=== PATIENT | female | born 1940 | race Caucasian/White ===

== ENCOUNTER → 2017-09-18 | Outpatient (CLI) | payer MEDICARE, BC ==
--- NOTE | 2017-09-18 15:18 | NM ---
EXAMINATION TYPE: NM bone scan whole body DATE OF EXAM: 09/18/2017 COMPARISON: Recent outside radiographs of the lumbar spine. HISTORY: Back pain Delayed whole-body scanning was performed following the injection of 26 mCi Tc 99m MDP. Images acqui red 3 hours post injection. FINDINGS: There are linear areas of increased radiotracer accumulation compatible with compression fractures of T10, T11 and T12. No additional areas of intense radiotracer accumulation are seen. There is mild up take seen about the shoulders, sternoclavicular joints, L5-S1 compatible with mild degenerative cullen e. IMPRESSION: 1. Intense linear uptake involving T10, T11 and T12 compatible with acute compression fractures.
== END | disposition home or self-care (01) ==
LOC: RADNMMAIN 11:03
PROVIDERS: ATTEND Physical Medicine & Rehabilitation
DX: S22.088A Other fracture of T11-T12 vertebra, initial encounter for closed fracture (principal); M54.6 Pain in thoracic spine; M47.814 Spondylosis without myelopathy or radiculopathy, thoracic region
CPT/HCPCS: 78306; A9503

== ENCOUNTER → 2017-11-29 | Outpatient (CLI) | payer MEDICARE, BC ==
--- NOTE | 2017-11-29 10:29 | CT ---
EXAMINATION TYPE: CT brain w con DATE OF EXAM: 11/29/2017 COMPARISON: NONE INDICATION: Lt sided hyperreflexia, left leg weakness. DLP: 1078.64 mGycm, Automated exposure control for dose reduction was used. CONTRAST: [address] of the brain is performed utilizing 3 mm thick sections through the posterior fossa and 3 mm thick sections through the remaining calvarium. Study is performed within 24 hours of arrival to the hosp [facility]. No abnormal hyperdensity is present to suggest an acute intracranial hemorrhage. No mass lesion is evident. No acute infarcts are evident. Ventricles and sulci are appropriate for the patient age. Tiny retention cyst at the edge of the [id number] within the inferior right maxillary sinus. Remai rodrigo paranasal sinuses and mastoid air cells are clear. No abnormal enhancement is evident. IMPRESSIONS: 1. Normal postcontrast CT brain.
--- NOTE | 2017-11-29 11:02 | CT ---
EXAMINATION TYPE: CT cervical spine w con DATE OF EXAM: 11/29/2017 COMPARISON: NONE HISTORY: Lt sided hyperreflexia CT DLP: 772.73 mGycm CONTRAST: Performed with IV Contrast, patient injected with 100 mL of Isovue 300. CT of the cervical spine is performed in the axial plane at 2 mm thick sections. Reconstructed image s in the coronal, and sagittal plane are reviewed on the computer. No acute fractures are evident. Vertebral body alignment is normal. Disc heights are preserved. Central disc protrusion may be present C3-4 with moderate anterior thecal sac compression. No cord co ntact is evident. No spinal canal stenosis is present. There is a small central protrusion C4-5 with mild anterior thecal sac compression. No cord contact o r spinal canal stenosis is present. Vertebral body heights are preserved. No spinal canal stenosis is evident No neural foraminal stenosis is evident. No suspicious enhancement is evident. No lytic or sclerotic osseous lesions are evident IMPRESSIONS: 1. Small central disc protrusion C3-4 C4-5 without obvious CORD contact or spinal canal stenosis.
== END | disposition home or self-care (01) ==
LOC: RADCTMAIN 09:03
PROVIDERS: ATTEND Psychiatry & Neurology Neurology
DX: G20 Parkinson's disease (principal); M50.221 Other cervical disc displacement at C4-C5 level; R29.2 Abnormal reflex
CPT/HCPCS: 72126; 70460; Q9967

== ENCOUNTER 2019-05-11 18:02 | Observation (INO) | payer MEDICARE, BC ==
[2019-05-11] MEDS ORDERED: IPRATROPIUM-ALBUTEROL 3 ML NEB INHALATION STA ×2 (18:12→19:49)
[2019-05-11 18:48] LABS: Basophils # (A) 0.1 k/uL (0-0.2); Basophils % (A) 1 %; Eosinophils # (A) 0.1 k/uL (0-0.7); Eosinophils % (A) 2 %; HGB 13.1 gm/dL (11.4-16.0); Lymphocytes # (A) 0.7 k/uL (1.0-4.8); Lymphocytes % (A) 8 %; MCH 29.8 pg (25.0-35.0); MCHC 31.3 g/dL (31.0-37.0); MCV 95.4 fL (80.0-100.0); Mean Platelet Volume 8.5; Monocytes # (A) 0.1 k/uL (0-1.0); Monocytes % (A) 2 %; Neutrophils # (A) 7.6 k/uL (1.3-7.7); Neutrophils % (A) 87 %; Platelet Count 272 k/uL (150-450); RBC 4.41 m/uL (3.80-5.40); RDW 14.8 % (11.5-15.5); WBC 8.7 k/uL (3.8-10.6)
[2019-05-11 18:57] LABS: Partial Thromboplastin Time 27.5 sec (22.0-30.0); Prothrombin Time 10.6 sec (9.0-12.0)
[2019-05-11 18:58] LABS: Albumin 4.1 g/dL (3.5-5.0); Calcium 9.6 mg/dL (8.4-10.2); Total Bilirubin 0.5 mg/dL (0.2-1.3)
[2019-05-11 19:19] LABS: Potassium 4.1 mmol/L (3.5-5.1)
[2019-05-11] MEDS ORDERED: MAGNESIUM SULFATE-D5W PMX 1 GM in DEXTROSE/WATER 1 100ML.BAG IVPB ONE (19:41)
[2019-05-11] MEDS ORDERED: SODIUM CHLORIDE 0.9% 500 ML 500 ML IV ONE (19:41)
[2019-05-11] MEDS ORDERED: NALOXONE 0.4 MG/ML 1 ML VIAL IV PRN (20:18)
--- NOTE | 2019-05-11 20:18 | ED ---
SOB HPI - General Chief Complaint: Shortness of Breath Stated Complaint: low O2 and blood pressure Time Seen by Provider: 05/11/19 18:05 Source: patient Mode of arrival: wheelchair Limitations: no limitations - History of Present Illness Initial Comments: The patient is an 79-year-old female with past medical history of COPD who presents to the emergency Department as a transfer from an urgent care. The patient reports that she has had increasing shortness of breath over the past week. She does normally not wear oxygen. States that she does have oxygen at home to use when needed. States that she has been wearing over the past week. She has been using her nebulizer and inhalers as directed however it hasn't been helping her symptoms. She continues to have exertional shortness of breath and extreme wheezing. Her daughter did take her into an urgent care today. They did provide the patient with a DuoNeb breathing treatment and steroids. They checked her for influenza and performed a chest x-ray which was negative for pneumonia. Influenza was negative. The patient continued to saturate 88% on room air and because of this he did recommend that she go to the hospital for evaluation. The patient denies any chest pain. No lower extremity swelling. Denies any unilateral calf pain or swelling. No history of DVTs or PEs. She admits to a productive cough with clear sputum. Denies any fevers or chills. No ripping or tearing sensation to her back. Denies any additional symptoms include headache, visual changes, back pain or flank pain. No pain into her lower extremity. There are no alleviating, precipitating or modifying factors - Related Data Home Medications Medication Instructions Recorded Confirmed ALPRAZolam [Xanax] 0.5 mg PO DAILY 07/11/16 05/11/19 Cholecalciferol [Vitamin D3 (25 5,000 unit PO DAILY 07/11/16 05/11/19 Mcg = 1000 Iu)] Furosemide [Lasix] 20 mg PO DAILY 07/11/16 05/11/19 Montelukast [Singulair] 10 mg PO DAILY 07/11/16 05/11/19 Apixaban [Eliquis] 2.5 mg PO BID 05/11/19 05/11/19 Carbidopa-Levodopa ER 50-200Mg 1 tab PO BID@0700,1200 05/11/19 05/11/19 [Sinemet CR 50-200 mg] Diltiazem HCl [Diltiazem 24Hr ER] 240 mg PO DAILY 05/11/19 05/11/19 Fluticasone/Salmeterol 1 puff INHALATION RT-BID 05/11/19 05/11/19 [Fluticasone-Salmeterol 232-14] Multivitamin [Multivitamins Adult 1 tab PO DAILY 05/11/19 05/11/19 Gummies] Sotalol [Betapace] 120 mg PO BID 05/11/19 05/11/19 Vit C/E/Zn/Coppr/Lutein/Zeaxan 1 cap PO BID 05/11/19 05/11/19 [Preservision Areds 2 Softgel] Vitamin C Time Release 500mg 500 mg PO DAILY 05/11/19 05/11/19 Previous Rx's Medication Instructions Recorded Albuterol Nebulized [Ventolin 2.5 mg INHALATION RT-QID PRN #30 05/13/19 Nebulized] nebu predniSONE 0 mg PO DIRECTED #30 tab 05/13/19 Allergies Allergy/AdvReac Type Severity Reaction Status Date / Time venom-honey bee Allergy Rash/Hives Verified 05/11/19 18:48 latex AdvReac Rash/Hives Verified 05/11/19 18:48 Review of Systems ROS Statement: Those systems with pertinent positive or pertinent negative responses have been documented in the HPI. ROS Other: All systems not noted in ROS Statement are negative. Past Medical History Past Medical History: Atrial Fibrillation, COPD History of Any Multi-Drug Resistant Organisms: None Reported Past Surgical History: Bladder Surgery, Bowel Resection, Hysterectomy, Pacemaker Additional Past Surgical History / Comment(s): spleenectomy Past Psychological History: Anxiety Smoking Status: Former smoker Past Alcohol Use History: None Reported Past Drug Use History: None Reported - Past Family History Daughter(s) Family Medical History: No Reported History Father History Unknown: Yes Family Medical History: Unable to Obtain Mother History Unknown: Yes Family Medical History: No Reported History General Exam Limitations: no limitations General appearance: alert, in no apparent distress Head exam: Present: atraumatic, normocephalic, normal inspection Eye exam: Present: normal appearance, PERRL, EOMI. Absent: scleral icterus, conjunctival injection, periorbital swelling ENT exam: Present: normal exam, mucous membranes moist Neck exam: Present: normal inspection. Absent: tenderness, meningismus, lymphadenopathy Respiratory exam: Present: wheezes, accessory muscle use (tachypnia). Absent: respiratory distress, rales, rhonchi, stridor Cardiovascular Exam: Present: regular rate, normal rhythm, normal heart sounds. Absent: systolic murmur, diastolic murmur, rubs, gallop, clicks GI/Abdominal exam: Present: soft, normal bowel sounds. Absent: distended, tenderness, guarding, rebound, rigid Extremities exam: Present: normal inspection, full ROM, normal capillary refill. Absent: tenderness, pedal edema, joint swelling, calf tenderness Back exam: Present: normal inspection Neurological exam: Present: alert, oriented X3, CN II-XII intact Psychiatric exam: Present: normal affect, normal mood Skin exam: Present: warm, dry, intact, normal color. Absent: rash Course Vital Signs 05/11/19 05/11/19 05/11/19 18:03 18:39 18:50 Temperature 97.9 F Pulse Rate 89 60 66 Pulse Rate [ Pulse Oximetery ] Respiratory 25 H Rate Blood Pressure 99/57 Blood Pressure [Right Arm] O2 Sat by Pulse 92 L Oximetry 05/11/19 05/11/19 05/11/19 20:00 20:03 20:12 Temperature Pulse Rate 60 72 74 Pulse Rate [ Pulse Oximetery ] Respiratory 20 Rate Blood Pressure 94/54 Blood Pressure [Right Arm] O2 Sat by Pulse 93 L Oximetry 05/11/19 21:00 Temperature 97.9 F Pulse Rate Pulse Rate [ 63 Pulse Oximetery ] Respiratory 16 Rate Blood Pressure Blood Pressure 114/56 [Right Arm] O2 Sat by Pulse 94 L Oximetry Medical Decision Making - Medical Decision Making Upon arrival the patient was placed into room 7. There are history of physical exam was performed. The patient did receive a DuoNeb breathing treatment at the urgent care. I did provide her with a second one. Her blood pressure is noted to be on the low end. Because of this we did obtain peripheral IV in the p atient was given a 500 bolus of normal saline. I also gave the patient gram of magnesium. She is given a DuoNeb breathing treatment upon arrival. I did recommend laboratory studies. CBC is unremarkable. Coags are unremarkable. CMP shows a sodium of 136. Glucose 128. I did review chest x-ray from the urgent care facility which demonstrates no infiltrate. I do reevaluate the patient she continues to be diffusely wheezy. I did remove her oxygen and she does desat to 88%. Because the patient continues to remain hypoxic did recommend hospital admission. I called discuss case with Dr. Posada who accepted admission for the patient. I did order DuoNeb breathing treatments and steroids for the patient. She did remain in stable condition was transported to floor - Lab Data Result diagrams: 05/11/19 18:24 05/11/19 18:24 Lab Results 05/11/19 05/11/19 05/11/19 Range/Units 18:24 18:24 18:24 WBC 8.7 (3.8-10.6) k/uL RBC 4.41 (3.80-5.40) m/uL Hgb 13.1 (11.4-16.0) gm/dL Hct 42.0 (34.0-46.0) % MCV 95.4 (80.0-100.0) fL MCH 29.8 (25.0-35.0) pg MCHC 31.3 (31.0-37.0) g/dL RDW 14.8 (11.5-15.5) % Plt Count 272 (150-450) k/uL Neutrophils % 87 % Lymphocytes % 8 % Monocytes % 2 % Eosinophils % 2 % Basophils % 1 % Neutrophils # 7.6 (1.3-7.7) k/uL Lymphocytes # 0.7 L (1.0-4.8) k/uL Monocytes # 0.1 (0-1.0) k/uL Eosinophils # 0.1 (0-0.7) k/uL Basophils # 0.1 (0-0.2) k/uL PT 10.6 (9.0-12.0) sec INR 1.0 (<1.2) APTT 27.5 (22.0-30.0) sec Sodium 136 L (137-145) mmol/L Potassium 4.1 (3.5-5.1) mmol/L Chloride 98 (98-107) mmol/L Carbon Dioxide 27 (22-30) mmol/L Anion Gap 11 mmol/L BUN 9 (7-17) mg/dL Creatinine 0.74 (0.52-1.04) mg/dL Est GFR (CKD-EPI)AfAm 89 (>60 ml/min/1.73 sqM) Est GFR (CKD-EPI)NonAf 77 (>60 ml/min/1.73 sqM) Glucose 128 H (74-99) mg/dL Calcium 9.6 (8.4-10.2) mg/dL Total Bilirubin 0.5 (0.2-1.3) mg/dL AST 23 (14-36) U/L ALT 10 (9-52) U/L Alkaline Phosphatase 87 (38-126) U/L NT-Pro-B Natriuret Pep pg/mL Total Protein 7.0 (6.3-8.2) g/dL Albumin 4.1 (3.5-5.0) g/dL 05/11/19 Range/Units 18:24 WBC (3.8-10.6) k/uL RBC (3.80-5.40) m/uL Hgb (11.4-16.0) gm/dL Hct (34.0-46.0) % MCV (80.0-100.0) fL MCH (25.0-35.0) pg MCHC (31.0-37.0) g/dL RDW (11.5-15.5) % Plt Count (150-450) k/uL Neutrophils % % Lymphocytes % % Monocytes % % Eosinophils % % Basophils % % Neutrophils # (1.3-7.7) k/uL Lymphocytes # (1.0-4.8) k/uL Monocytes # (0-1.0) k/uL Eosinophils # (0-0.7) k/uL Basophils # (0-0.2) k/uL PT (9.0-12.0) sec INR (<1.2) APTT (22.0-30.0) sec Sodium (137-145) mmol/L Potassium (3.5-5.1) mmol/L Chloride (98-107) mmol/L Carbon Dioxide (22-30) mmol/L Anion Gap mmol/L BUN (7-17) mg/dL Creatinine (0.52-1.04) mg/dL Est GFR (CKD-EPI)AfAm (>60 ml/min/1.73 sqM) Est GFR (CKD-EPI)NonAf (>60 ml/min/1.73 sqM) Glucose (74-99) mg/dL Calcium (8.4-10.2) mg/dL Total Bilirubin (0.2-1.3) mg/dL AST (14-36) U/L ALT (9-52) U/L Alkaline Phosphatase (38-126) U/L NT-Pro-B Natriuret Pep 784 pg/mL Total Protein (6.3-8.2) g/dL Albumin (3.5-5.0) g/dL - EKG Data EKG Comments: EKG demonstrates a sinus rhythm with a ventricular rate of 60. NM interval 214. QRS 76. QTC 466. No acute ST segment elevations or depressions concerning for ischemic changes. There is overall low voltage. This is compared to previous and appear similar. Disposition Clinical Impression: Acute exacerbation of chronic obstructive pulmonary disease Disposition: ADMITTED IP TO THIS HOSP Condition: Stable Is patient prescribed a controlled substance at d/c from ED?: No Decision to Admit Reason: Admit from EC Decision Date: 05/11/19 Decision Time: 20:18
--- NOTE | 2019-05-11 22:23 | P.HPIM ---
History of Present Illness H&P Date: 05/11/19 Chief Complaint: Wheezing and coughing The patient is a 79-year-old female with a past medical history of COPD, atrial fibrillation status post pacemaker/defibrillator currently on anticoagulation with DOAC Eliquis, Parkinson's disease that was referred to the ER after being transferred from urgent care. Apparently the patient resides in [place] and earlier presented there with complaints of lightheadedness shortness of air and wheezing. The patient has a prescription for oxygen 2 L by nasal cannula which she wears when necessary but began wearing it for the last 24 hours The patient reports she began wheezing today but has had a productive cough with clear sputum for the last 7 days, she apparently thought she had the flu because she had episodes of nausea earlier in the week which are now resolved, she denies any subjective fevers chills or night sweats, she complains of muscle stiffness and aches. The patient reports that she ambulates unassisted and that she lives with her daughter Patricia who is not available via phone or in person at this time. Patient reports not having her seasonal flu shot as yet this year As there is no documentation available, the rest of the history is obtained by information relayed from the ED physician. Apparently the patient was noted to have a low blood pressure and low oxygen saturations with 88% on room air, she was placed on supplemental oxygen and started on IV IV steroids and breathing treatments to which she received here at 1 at the urgent care. Patient was still noted to be around 88% on room air after treatment and was recommended for admission for COPD exacerbation Review of Systems Pertinent positives per HPI all other review of system otherwise negative Past Medical History Past Medical History: Atrial Fibrillation, COPD History of Any Multi-Drug Resistant Organisms: None Reported Past Surgical History: Bladder Surgery, Bowel Resection, Hysterectomy, Pacemaker Additional Past Surgical History / Comment(s): spleenectomy Past Psychological History: Anxiety Smoking Status: Former smoker Past Alcohol Use History: None Reported Past Drug Use History: None Reported - Past Family History Daughter(s) Family Medical History: No Reported History Father History Unknown: Yes Family Medical History: Unable to Obtain Mother History Unknown: Yes Family Medical History: No Reported History Medications and Allergies Home Medications Medication Instructions Recorded Confirmed Type ALPRAZolam [Xanax] 0.5 mg PO DAILY 07/11/16 05/11/19 History Albuterol Nebulized [Ventolin 2.5 mg INHALATION RT-QID 07/11/16 05/11/19 History Nebulized] Cholecalciferol [Vitamin D3] 5,000 unit PO DAILY 07/11/16 05/11/19 History Furosemide [Lasix] 20 mg PO DAILY 07/11/16 05/11/19 History Montelukast [Singulair] 10 mg PO DAILY 07/11/16 05/11/19 History Apixaban [Eliquis] 2.5 mg PO BID 05/11/19 05/11/19 History Carbidopa-Levodopa ER 50-200Mg 1 tab PO BID@0700,1200 05/11/19 05/11/19 History [Sinemet ER 50-200] Diltiazem HCl [Diltiazem ER] 240 mg PO DAILY 05/11/19 05/11/19 History Fluticasone/Salmeterol 1 puff INHALATION RT-BID 05/11/19 05/11/19 History [Fluticasone-Salmeterol 232-14] Multivitamin [Multivitamins Adult 1 tab PO DAILY 05/11/19 05/11/19 History Gummies] Sotalol [Betapace] 120 mg PO BID 05/11/19 05/11/19 History Vit C/E/Zn/Coppr/Lutein/Zeaxan 1 cap PO BID 05/11/19 05/11/19 History [Preservision Areds 2 Softgel] Vitamin C Time Release 500mg 500 mg PO DAILY 05/11/19 05/11/19 History predniSONE 10 mg PO DAILY 05/11/19 05/11/19 History Allergies Allergy/AdvReac Type Severity Reaction Status Date / Time venom-honey bee Allergy Rash/Hives Verified 05/11/19 18:48 latex AdvReac Rash/Hives Verified 05/11/19 18:48 Physical Exam Vitals: Vital Signs Temp Pulse Resp BP Pulse Ox 05/11/19 20:12 74 05/11/19 20:03 72 05/11/19 20:00 60 20 94/54 93 L 05/11/19 18:50 66 05/11/19 18:39 60 05/11/19 18:03 97.9 F 89 25 H 99/57 92 L Intake and Output 05/11/19 05/11/19 05/11/19 06:59 14:59 22:59 Intake Total 400 Balance 400 Intake: Amount of Fluid Infused ( 400 ml) Other: Weight 77.564 kg Constitutional: No acute distress, conversant, pleasant Eyes: Anicteric sclerae, moist conjunctiva, no lid-lag, PERRLA ENMT: NC/AT,Oropharynx clear, no erythema, exudates Neck:Supple, FROM, no masses, or JVD, No carotid bruits; No thyromegaly Lungs: Diminished in the bases with right sided expiratory wheezes Cardiovascular: Heart regular in rate and rhythm, No murmurs, gallops, or rubs no peripheral edema Abdominal: Soft Nontender, nom distended, no guarding, no rebound or rigidity, Normoactive bowel sounds No hepatomegaly, No splenomegaly, No palpable mass No abdominal wall hernia noted Skin: Normal temperature, tone, texture, turgor, No induration No subcutaneous nodules, No rash, lesions, No ulcers Extremities:No digital cyanosis No clubbing, Pedal pulses intact and symmetrical Radial pulses intact and symmetrical Normal gait and station, No calf tenderness Psychiatric: Alert and oriented to person, place and time, Appropriate affect Intact judgement Neuro: Muscles Strength 5/5 in all 4 extremities, Sensation to light touch grossly present throughout, Cranial nerves II-XII grossly intact. No focal sensory deficits Results CBC & Chem 7: 05/11/19 18:24 05/11/19 18:24 Labs: Abnormal Lab Results - Last 24 Hours (Table) 05/11/19 05/11/19 Range/Units 18:24 18:24 Lymphocytes # 0.7 L (1.0-4.8) k/uL Sodium 136 L (137-145) mmol/L Glucose 128 H (74-99) mg/dL Assessment and Plan Assessment: Acute respiratory failure with hypoxia Acute COPD exacerbation Tracheobronchitis Atrial fibrillation on DOAC with Eliquis Parkinson's disease Essential hypertension Mild hyponatremia Atelectasis Plan: The patient observation anticipate a less than 2 midnight stay with acute respiratory failure with hypoxia secondary to acute COPD exacerbation triggered by acute tracheobronchitis. Checks x-ray done at urgent care facility apparently was negative for any infectious etiology, but showed left basilar atelectasis and cardiomegaly. The patient's blood pressure was borderline and she was given a liter of IV fluids in the ER. Admission labs have very few abnormalities serum sodium was mildly low at 136. Influenza was also apparently negative, the patient is continued on systemic steroids with IV Solu-Medrol, albuterol Atrovent Duo breathing treatments scheduled and PRN, with Perforomist and Mucinex added. Patient is continued on her home medications CODE STATUS: DO NOT RESUSCITATE Discussed plan of care with: Patient Anticipated discharge; 1-[address]: Home Prophylaxis: Currently on DOAC/ PPI
[2019-05-11] MEDS: APIXABAN 2.5 MG TABLET PO SCH (23:10)
[2019-05-11] MEDS: SOTALOL 120 MG TAB PO SCH (23:10)
[2019-05-11] MEDS: VIT A,C & E-LUTEIN-MINERALS 1 EACH TAB PO SCH (23:10)
[2019-05-11] MEDS: methylPREDNISolone SOD SUCCI 40 MG/ML 1 ML VIAL IV SCH (23:10)
[2019-05-11] MEDS ORDERED: POLYETHYLENE GLYCOL 3350 17 GM POWD.PACK PO STA (23:44)
[2019-05-11] MEDS: IPRATROPIUM-ALBUTEROL 3 ML NEB INHALATION SCH (23:51)
[2019-05-12] MEDS: IPRATROPIUM-ALBUTEROL 3 ML NEB INHALATION SCH ×6 (03:56→23:26)
[2019-05-12 07:08] LABS: Glucose,Whole Blood 131 mg/dL (75-99)
[2019-05-12] MEDS: FORMOTEROL FUMARATE 20 MCG/2 ML NEBU INHALATION SCH ×3 (08:13→19:46)
[2019-05-12] MEDS: SYMBICORT 160-4.5 MCG INHALER INHALATION SCH ×4 (08:13→20:02)
[2019-05-12] MEDS: ASCORBIC ACID 500 MG TAB PO SCH (08:24)
[2019-05-12] MEDS: methylPREDNISolone SOD SUCCI 40 MG/ML 1 ML VIAL IV SCH ×2 (08:24→16:15)
[2019-05-12] MEDS: CHOLECALCIFEROL 1,000 UNIT TAB PO SCH (08:24)
[2019-05-12] MEDS: DILTIAZEM CD 240 MG CAP.ER.24H PO SCH (08:24)
[2019-05-12] MEDS: FUROSEMIDE 20 MG TAB PO SCH (08:24)
[2019-05-12] MEDS: PANTOPRAZOLE 40 MG TABLET PO SCH (08:25)
[2019-05-12] MEDS: CARBIDOPA-LEVODOPA ER 50-200MG 1 EACH TABLET.ER PO SCH ×2 (08:25→11:45)
[2019-05-12] MEDS: guaiFENesin 600 MG TABLET.ER PO SCH ×2 (08:25→20:39)
[2019-05-12] MEDS: ALPRAZolam 0.5 MG TAB PO SCH (08:25)
[2019-05-12] MEDS: MONTELUKAST 10 MG TAB PO SCH (08:25)
[2019-05-12] MEDS: APIXABAN 2.5 MG TABLET PO SCH ×2 (08:25→20:40)
[2019-05-12] MEDS: SOTALOL 120 MG TAB PO SCH ×2 (08:26→20:39)
[2019-05-12] MEDS: INSULIN ASPART (NovoLOG) 100 UNIT/ML VIAL SQ SCH ×4 (08:26→20:56)
[2019-05-12] MEDS: POLYETHYLENE GLYCOL 3350 17 GM POWD.PACK PO SCH (08:26)
[2019-05-12] MEDS: VIT A,C & E-LUTEIN-MINERALS 1 EACH TAB PO SCH ×2 (08:26→20:39)
[2019-05-12] MEDS: MULTIVITAMINS, THERA 1 EACH TAB PO SCH (08:26)
[2019-05-12 11:26] LABS: Glucose,Whole Blood 156 mg/dL (75-99)
[2019-05-12 13:42] VITALS: BMI 26.6
--- NOTE | 2019-05-12 17:01 | P.PN ---
Subjective Progress Note Date: 05/12/19 The patient was seen and examined at the bedside on 05/12. She was in good spirits and noted that her breathing has improved. She denied chest pain, nausea, vomiting, fever, or chills. Objective - Vital Signs Vital signs: Vital Signs Temp 97.5 F L 05/12/19 11:53 Pulse 72 05/12/19 15:55 Resp 17 05/12/19 11:53 BP 109/66 05/12/19 11:53 Pulse Ox 92 L 05/12/19 11:53 Intake & Output 05/11/19 05/12/19 05/12/19 18:59 06:59 18:59 Intake Total 1880 590 Balance 1880 590 Weight 77.564 kg 75 kg 75 kg Intake: Amount of Fluid Infused ( 400 ml) Oral 1480 590 Other: Voiding Method Toilet # Voids 2 3 - Exam General: Non-toxic, in no acute distress, appears stated age, normal weight HEENT: NC/AT, anicteric sclerae, moist conjunctiva, no lid-lag, PERRLA Cardiovascular: S1/S2 wnl, no murmurs, rubs, or gallops Lungs: Mildly decreased air entry violette w/ some wheezing, normal respiratory effort, no accessory muscle use Abdominal: Soft, non-tender, non-distended, no guarding, rebound, or rigidity Skin: Warm, dry Extremities: No edema or contractures Psychiatric: Alert and oriented to person, place and time, appropriate affect Neuro: CN II-XII grossly intact, no focal deficits - Labs CBC & Chem 7: 05/11/19 18:24 05/11/19 18:24 Labs: Abnormal Lab Results - Last 24 Hours (Table) 05/11/19 05/11/19 05/12/19 Range/Units 18:24 18:24 07:07 Lymphocytes # 0.7 L (1.0-4.8) k/uL Sodium 136 L (137-145) mmol/L Glucose 128 H (74-99) mg/dL POC Glucose (mg/dL) 131 H (75-99) mg/dL 05/12/19 Range/Units 11:25 Lymphocytes # (1.0-4.8) k/uL Sodium (137-145) mmol/L Glucose (74-99) mg/dL POC Glucose (mg/dL) 156 H (75-99) mg/dL Assessment and Plan Plan: Acute hypoxic respiratory failure in the setting of acute COPD exacerbation -Continue with Solu-Medrol -Continue with DuoNeb's and Symbicort -Supplemental oxygen Atrial fibrillation -Continue with Eliquis DM -RISSA with FS Hypertension, Parkinson's -Continue with home meds DVT prophylaxis -Giovanaquis Discussed with: Patient Anticipated discharge date: 05/[address]: Home A total of 35 minutes was spent on the care of this complex patient more than 50% of the time was spent in counseling and care coordination.
[2019-05-12 17:33] LABS: Glucose,Whole Blood 187 mg/dL (75-99)
[2019-05-12 20:52] LABS: Glucose,Whole Blood 148 mg/dL (75-99)
[2019-05-13] MEDS: methylPREDNISolone SOD SUCCI 40 MG/ML 1 ML VIAL IV SCH ×2 (00:42→07:57)
[2019-05-13] MEDS: IPRATROPIUM-ALBUTEROL 3 ML NEB INHALATION SCH ×4 (03:21→15:43)
[2019-05-13 07:22] LABS: Glucose,Whole Blood 132 mg/dL (75-99)
[2019-05-13] MEDS: INSULIN ASPART (NovoLOG) 100 UNIT/ML VIAL SQ SCH ×2 (07:52→12:00)
[2019-05-13] MEDS: ASCORBIC ACID 500 MG TAB PO SCH (07:53)
[2019-05-13] MEDS: MULTIVITAMINS, THERA 1 EACH TAB PO SCH (07:53)
[2019-05-13] MEDS: ALPRAZolam 0.5 MG TAB PO SCH (07:53)
[2019-05-13] MEDS: CHOLECALCIFEROL 1,000 UNIT TAB PO SCH (07:54)
[2019-05-13] MEDS: MONTELUKAST 10 MG TAB PO SCH (07:56)
[2019-05-13] MEDS: PANTOPRAZOLE 40 MG TABLET PO SCH (07:56)
[2019-05-13] MEDS: APIXABAN 2.5 MG TABLET PO SCH (07:56)
[2019-05-13] MEDS: FUROSEMIDE 20 MG TAB PO SCH (07:56)
[2019-05-13] MEDS: guaiFENesin 600 MG TABLET.ER PO SCH (07:57)
[2019-05-13] MEDS ORDERED: BISACODYL 5 MG TABLET.DR PO STA (07:58)
[2019-05-13] MEDS: POLYETHYLENE GLYCOL 3350 17 GM POWD.PACK PO SCH (08:00)
[2019-05-13] MEDS: CARBIDOPA-LEVODOPA ER 50-200MG 1 EACH TABLET.ER PO SCH ×2 (08:07→12:03)
[2019-05-13] MEDS: VIT A,C & E-LUTEIN-MINERALS 1 EACH TAB PO SCH (08:08)
[2019-05-13] MEDS: DILTIAZEM CD 240 MG CAP.ER.24H PO SCH (08:08)
[2019-05-13] MEDS: SOTALOL 120 MG TAB PO SCH (08:08)
[2019-05-13] MEDS: FORMOTEROL FUMARATE 20 MCG/2 ML NEBU INHALATION SCH (08:23)
[2019-05-13] MEDS: SYMBICORT 160-4.5 MCG INHALER INHALATION SCH (08:24)
--- NOTE | 2019-05-13 09:40 | P.DS ---
Providers Date of admission: 05/11/19 20:23 Expected date of discharge: 05/13/19 Attending physician: Travon Posada MD Primary care physician: Tammy Lockwood [facility] Course: Vision is an 79-year-old female with a PMH of COPD, A. fib, and Parkinson's disease who had presented to the ED with complaints of shortness of breath with wheezing. The patient was transferred from an urgent care center where she had presented for similar symptoms. The patient was noted to be hypoxic in the emergency room. Laboratory evaluation had revealed a sodium 136, BNP 74, hemoglobin 10.1, WBC count 8.7. She was started on supplemental oxygen along with IV steroids and breathing treatments and was admitted under observation. The patient's breathing gradually improved. She was seen and evaluated at the bedside on the day of discharge. She reported that she feels as though she is almost back to her baseline. She noted no further episodes of shortness of breath or wheezing. She denied chest pain, itchiness, nausea, vomiting, fever, or chills. Physical Examination General: Non-toxic, in no acute distress, appears stated age, normal weight HEENT: NC/AT, anicteric sclerae, moist conjunctiva, no lid-lag, PERRLA Cardiovascular: S1/S2 wnl, no murmurs, rubs, or gallops Lungs: Clear to auscultation, normal respiratory effort, no accessory muscle use Abdominal: Soft, non-tender, non-distended, no guarding, rebound, or rigidity Skin: Warm, dry Extremities: No edema or contractures Psychiatric: Alert and oriented to person, place and time, appropriate affect Neuro: CN II-XII grossly intact, Strength 5/5 in all 4 extremities, Speech intact, Sensation to light touch grossly intact throughout Discharge diagnosis: Acute hypoxic respiratory failure secondary to an acute COPD exacerbation in setting of tracheobronchitis; atrial fibrillation; Parkinson's disease; hypertension; atelectasis A total of 35 minutes of time were spent preparing this complex discharge summary. Patient Condition at Discharge: Stable Plan - Discharge Summary Discharge Rx Participant: No New Discharge Prescriptions: New predniSONE 0 mg PO DIRECTED #30 tab Continue Cholecalciferol [Vitamin D3 (25 Mcg = 1000 Iu)] 5,000 unit PO DAILY ALPRAZolam [Xanax] 0.5 mg PO DAILY Montelukast [Singulair] 10 mg PO DAILY Furosemide [Lasix] 20 mg PO DAILY Vitamin C Time Release 500mg 500 mg PO DAILY Vit C/E/Zn/Coppr/Lutein/Zeaxan [Preservision Areds 2 Softgel] 1 cap PO BID Carbidopa-Levodopa ER 50-200Mg [Sinemet CR 50-200 mg] 1 tab PO BID@0700,1200 Fluticasone/Salmeterol [Fluticasone-Salmeterol 232-14] 1 puff INHALATION RT- BID Diltiazem HCl [Diltiazem 24Hr ER] 240 mg PO DAILY Apixaban [Eliquis] 2.5 mg PO BID Sotalol [Betapace] 120 mg PO BID Multivitamin [Multivitamins Adult Gummies] 1 tab PO DAILY Albuterol Nebulized [Ventolin Nebulized] 2.5 mg INHALATION RT-QID #30 neb Discontinued predniSONE 10 mg PO DAILY Discharge Medication List ALPRAZolam [Xanax] 0.5 mg PO DAILY 07/11/16 [History] Cholecalciferol [Vitamin D3 (25 Mcg = 1000 Iu)] 5,000 unit PO DAILY 07/11/16 [History] Furosemide [Lasix] 20 mg PO DAILY 07/11/16 [History] Montelukast [Singulair] 10 mg PO DAILY 07/11/16 [History] Apixaban [Eliquis] 2.5 mg PO BID 05/11/19 [History] Carbidopa-Levodopa ER 50-200Mg [Sinemet CR 50-200 mg] 1 tab PO BID@0700,1200 05/11/19 [History] Diltiazem HCl [Diltiazem 24Hr ER] 240 mg PO DAILY 05/11/19 [History] Fluticasone/Salmeterol [Fluticasone-Salmeterol 232-14] 1 puff INHALATION RT-BID 05/11/19 [History] Multivitamin [Multivitamins Adult Gummies] 1 tab PO DAILY 05/11/19 [History] Sotalol [Betapace] 120 mg PO BID 05/11/19 [History] Vit C/E/Zn/Coppr/Lutein/Zeaxan [Preservision Areds 2 Softgel] 1 cap PO BID 05/11/19 [History] Vitamin C Time Release 500mg 500 mg PO DAILY 05/11/19 [History] Albuterol Nebulized [Ventolin Nebulized] 2.5 mg INHALATION RT-QID #30 neb 05/13/19 [Rx] predniSONE 0 mg PO DIRECTED #30 tab 05/13/19 [Rx] Follow up Appointment(s)/Referral(s): Tammy Banks MD [Primary Care Provider] - 1-2 days Discharge Disposition: HOME SELF-CARE
[2019-05-13 11:32] LABS: Glucose,Whole Blood 120 mg/dL (75-99)
[2019-05-13] MEDS ORDERED: BISACODYL 10 MG SUPP RECTAL STA (13:44)
[2019-05-13 15:34] VITALS: BP 121/70; RESP 18; TEMP 98
[2019-05-13 15:59] VITALS: PULSE 76
== END 2019-05-13 16:05 | disposition home or self-care (01) ==
LOC: EC 18:02 → 3NMEDONC 20:23
PROVIDERS: ADMIT Family Medicine; ATTEND Family Medicine
DX: J44.0 Chronic obstructive pulmonary disease with (acute) lower respiratory infection (principal); J44.1 Chronic obstructive pulmonary disease with (acute) exacerbation; E87.1 Hypo-osmolality and hyponatremia; F41.9 Anxiety disorder, unspecified; G20 Parkinson's disease; I11.9 Hypertensive heart disease without heart failure; I48.91 Unspecified atrial fibrillation; J20.9 Acute bronchitis, unspecified; J96.01 Acute respiratory failure with hypoxia; J98.11 Atelectasis; Z66 Do not resuscitate; Z79.01 Long term (current) use of anticoagulants; Z79.899 Other long term (current) drug therapy; Z87.891 Personal history of nicotine dependence; Z90.710 Acquired absence of both cervix and uterus; Z90.81 Acquired absence of spleen; Z95.0 Presence of cardiac pacemaker; Z99.81 Dependence on supplemental oxygen; Z91.030 Bee allergy status; Z91.040 Latex allergy status
CPT/HCPCS: 96376 ×2; 96361 ×3; 96375; 96365; 99285; 36415; 94640 ×6; 94760 ×2; 93005; 83880; 80053; 85025; 85610; 85730; G0378 ×3; J2920 ×3; J3475; 96366

== ENCOUNTER → 2019-05-16 | Outpatient (CLI) | payer MEDICARE, BC ==
--- NOTE | 2019-05-16 11:18 | CT ---
EXAMINATION TYPE: CT abdomen pelvis w con DATE OF EXAM: 05/16/2019 HISTORY: Abdominal hernia CT DLP: 1596mGycm Automated Exposure Control for Dose Reduction was Utilized. CONTRAST: CT scan of the abdomen and pelvis is performed with oral and with IV Contrast, patient injected with 100 mL of Isovue 300. COMPARISON: MRI liver August 15, 2011. FINDINGS: LUNG BASES: Elevated left hemidiaphragm. Partial visualization of right-sided pacemaker leads. LIVER/GB: Scattered subcentimeter low dense lesions throughout the liver too small to further charact erize. There is a larger 3.4 cm thin-walled cyst lateral segment left hepatic lobe axial image 32. Im mediately to the right of this there is heterogeneous hyperdense 5.8 x 5.1 cm lesion axial image 20 w ith some central hypodensity. This correlates with 2012 MRI and is stable in size felt to reflect a l arge atypical hemangioma on the MRI workup. Smaller roughly 1 cm lesion inferior right hepatic lobe a xial image is redemonstrated. PANCREAS: No significant abnormality is seen. SPLEEN: Spleen is surgically absent similar to MRI with tiny residual tissue or splenules posterior l eft upper quadrant redemonstrated. ADRENALS: No significant abnormality is seen. KIDNEYS: There are prominent central parapelvic cysts in the left kidney again seen. Asymmetric laryn geal uptake excretion bilaterally without hydronephrosis is noted. BOWEL: Oral contrast reaches the level of the hepatic flexure. There is no suspicious small or large bowel dilatation. There are surgical sutures at level of sigmoid colon on axial image 60. Few scatter ed colonic diverticula. No suspicious smaller large bowel dilatation. Terminal ileum appears within n ormal limits. UTERUS/ADNEXA: Uterus is surgically absent. LYMPH NODES: No greater than 1cm abdominal or pelvic lymph nodes are appreciated. OSSEOUS STRUCTURES: Moderate to severe narrowing of both hip joints. Moderate disc space narrowing an d vacuum disc phenomenon L3-L4 level. Mild height loss and anterior compression T12 level. Multilevel facet arthropathy lower lumbar spine. Disc herniation L3-L4 level effaces anterior thecal sac sagitt al image 37. OTHER: [id number] calcified plaque of the aorta extends into branch vessels. There is a wide neck ventral wall hernia measuring 3.2 cm\31 containing fat and tiny mesenteric vesse ls with some right lateral fluid coronal image 5. Just inferior to the left of this there is addition al ventral wall hernia containing fat there are surgical scar seen best coronal image 6, hernia best seen axial image 40. There is additional cortical scar over the lower abdomen axial image 59. There i s right pelvic hernia axial image 67 containing fat and tiny mesenteric vessels as well as contrast o pacified nondilated small bowel loop along the lateral aspect of the rectus sheath or Spigelian type hernia. IMPRESSION: Several bilateral wall hernias including a spigelian type hernia right pelvis containing nonobstructed ileal loop.
== END ==
LOC: RADCTMAIN 08:36
PROVIDERS: ATTEND Family Medicine
DX: K43.9 Ventral hernia without obstruction or gangrene (principal); K46.9 Unspecified abdominal hernia without obstruction or gangrene
CPT/HCPCS: 74177; Q9967

== ENCOUNTER 2019-06-05 12:23 | Inpatient (IN) | payer MEDICARE, BC ==
[2019-06-05] MEDS ORDERED: methylPREDNISolone SOD SUCCI 125 MG/2 ML VIAL IV STA (12:42)
[2019-06-05] MEDS ORDERED: IPRATROPIUM 0.5 MG/2.5 ML NEBU INHALATION STA (12:42)
[2019-06-05] MEDS ORDERED: ALBUTEROL NEBULIZED 2.5 MG/3 ML INHALATION STA (12:42)
--- NOTE | 2019-06-05 12:45 | ED ---
General Adult HPI - General Chief complaint: Shortness of Breath Stated complaint: SOB Time Seen by Provider: 06/05/19 12:25 Source: patient, RN notes reviewed Mode of arrival: wheelchair Limitations: no limitations - History of Present Illness Initial comments: This is an 79-year-old female who presents emergency department with past medical history significant for COPD. Patient states starting yesterday she started having more shortness of breath and she continued giving her albuterol more more often to the point where she is doing it every 2 hours and not getting much relief. Patient denies any fever or cough. Patient denies any chills per patient denies any chest pain or palpitations. Patient denies any swelling to the legs or calf tenderness. Patient states exertion definitely makes it worse. Patient states albuterol only helps for short period time. Patient denies any lightheadedness or dizziness. Patient denies any numbness or weakness. Patient denies any abdominal pain patient with any recent nausea vomiting diarrhea. - Related Data Home Medications Medication Instructions Recorded Confirmed ALPRAZolam [Xanax] 0.5 mg PO DAILY 07/11/16 06/05/19 Cholecalciferol [Vitamin D3 (25 5,000 unit PO DAILY 07/11/16 06/05/19 Mcg = 1000 Iu)] Furosemide [Lasix] 20 mg PO DAILY 07/11/16 06/05/19 Montelukast [Singulair] 10 mg PO DAILY 07/11/16 06/05/19 Apixaban [Eliquis] 2.5 mg PO BID 05/11/19 06/05/19 Carbidopa-Levodopa ER 50-200Mg 1 tab PO BID@0700,1200 05/11/19 06/05/19 [Sinemet CR 50-200 mg] Fluticasone/Salmeterol 1 puff INHALATION RT-BID 05/11/19 06/05/19 [Fluticasone-Salmeterol 232-14] Multivitamin [Multivitamins Adult 1 tab PO DAILY 05/11/19 06/05/19 Gummies] Sotalol [Betapace] 120 mg PO BID 05/11/19 06/05/19 Vit C/E/Zn/Coppr/Lutein/Zeaxan 1 cap PO BID 05/11/19 06/05/19 [Preservision Areds 2 Softgel] Vitamin C Time Release 500mg 500 mg PO DAILY 05/11/19 06/05/19 Diltiazem HCl [Diltiazem ER] 180 mg PO DAILY 06/05/19 06/05/19 Previous Rx's Medication Instructions Recorded Albuterol Nebulized [Ventolin 2.5 mg INHALATION RT-QID PRN #30 05/13/19 Nebulized] nebu Allergies Allergy/AdvReac Type Severity Reaction Status Date / Time latex Allergy Rash/Hives Verified 06/05/19 12:39 venom-honey bee Allergy Rash/Hives Verified 06/05/19 12:39 Review of Systems ROS Statement: Those systems with pertinent positive or pertinent negative responses have been documented in the HPI. ROS Other: All systems not noted in ROS Statement are negative. Past Medical History Past Medical History: Atrial Fibrillation, COPD Additional Past Medical History / Comment(s): Allergies. bladder and colon cancer no treatment with chemo or radiation, TIA in 2010,Parkinsons, patient pupils are unequal (left bigger than right, and per patient has always been like this), chronic back pain, macular degeneration, ex-smoker 10 years ago History of Any Multi-Drug Resistant Organisms: None Reported Past Surgical History: Bladder Surgery, Bowel Resection, Hysterectomy, Pacemaker Additional Past Surgical History / Comment(s): spleenectomy Past Anesthesia/Blood Transfusion Reactions: No Reported Reaction Type of Cardiac Device: Permanent Pacemaker Device Placement Date:: Unknown Past Psychological History: Anxiety Smoking Status: Former smoker Past Alcohol Use History: None Reported Past Drug Use History: None Reported - Past Family History Daughter(s) Family Medical History: No Reported History Father History Unknown: Yes Family Medical History: Unable to Obtain Mother History Unknown: Yes Family Medical History: No Reported History General Exam - General Exam Comments Initial Comments: GENERAL: Patient is well-developed and well-nourished. Patient is nontoxic and well- hydrated and is in mild distress. ENT: Neck is soft and supple. No significant lymphadenopathy is noted. Oropharynx is clear. Moist mucous membranes. Neck has full range of motion without eliciting any pain. EYES: The sclera were anicteric and conjunctiva were pink and moist. Extraocular movements were intact and pupils were equal round and reactive to light. Eyelids were unremarkable. PULMONARY: Patient has diminished breath sounds throughout and expiratory wheezing. CARDIOVASCULAR: There is a regular rate and rhythm without any murmurs gallops or rubs. ABDOMEN: Soft and nontender with normal bowel sounds. SKIN: Skin is clear with no lesions or rashes and otherwise unremarkable. NEUROLOGIC: Patient is alert and oriented x3. Cranial nerves II through XII are grossly intact. Motor and sensory are also intact. Normal speech, volume and content. Symmetrical smile. MUSCULOSKELETAL: Normal extremities with adequate strength and full range of motion. Left leg is slightly bigger than the right patient states this is been chronic and she has been checked before for DVTs and according to her this leg size is baseline LYMPHATICS: No significant lymphadenopathy is noted PSYCHIATRIC: Normal psychiatric evaluation. Limitations: no limitations Course Vital Signs 06/05/19 06/05/19 06/05/19 12:24 12:48 13:15 Temperature 98.5 F Pulse Rate 73 70 68 Respiratory 20 Rate Blood Pressure 128/73 O2 Sat by Pulse 94 L Oximetry 06/05/19 06/05/19 13:30 14:04 Temperature Pulse Rate 68 73 Respiratory 18 18 Rate Blood Pressure 107/71 137/71 O2 Sat by Pulse 97 96 Oximetry Medical Decision Making - Medical Decision Making EKG shows normal sinus rhythm at 69 bpm W[place] interval 182 QRS is 70 QT interval is 414 QTC is 443. Patient's EKG shows no ST segment elevation or depression or T wave abnormalities are noted. Chest x-ray shows no acute abnormalities. I will begin the room to reevaluate the patient she still is wheezing diffusely and stated she didn't feel much better after a couple trips. I spoke with Dr. Antonio for [facility] and he agreed to admit the patient admit malathi the patient continued reading treatments and steroids on the floor. - Lab Data Result diagrams: 06/05/19 12:48 06/05/19 12:48 Lab Results 06/05/19 06/05/19 06/05/19 Range/Units 12:48 12:48 12:48 WBC 8.4 (3.8-10.6) k/uL RBC 3.91 (3.80-5.40) m/uL Hgb 11.9 (11.4-16.0) gm/dL Hct 36.2 (34.0-46.0) % MCV 92.4 (80.0-100.0) fL MCH 30.3 (25.0-35.0) pg MCHC 32.8 (31.0-37.0) g/dL RDW 14.8 (11.5-15.5) % Plt Count 284 (150-450) k/uL Neutrophils % 69 % Lymphocytes % 15 % Monocytes % 5 % Eosinophils % 7 % Basophils % 1 % Neutrophils # 5.8 (1.3-7.7) k/uL Lymphocytes # 1.3 (1.0-4.8) k/uL Monocytes # 0.4 (0-1.0) k/uL Eosinophils # 0.6 (0-0.7) k/uL Basophils # 0.1 (0-0.2) k/uL PT (9.0-12.0) sec INR (<1.2) APTT (22.0-30.0) sec Sodium 141 (137-145) mmol/L Potassium 4.0 (3.5-5.1) mmol/L Chloride 105 (98-107) mmol/L Carbon Dioxide 26 (22-30) mmol/L Anion Gap 10 mmol/L BUN 8 (7-17) mg/dL Creatinine 0.58 (0.52-1.04) mg/dL Est GFR (CKD-EPI)AfAm >90 (>60 ml/min/1.73 sqM) Est GFR (CKD-EPI)NonAf 87 (>60 ml/min/1.73 sqM) Glucose 89 (74-99) mg/dL Calcium 9.2 (8.4-10.2) mg/dL Magnesium 2.2 (1.6-2.3) mg/dL Total Bilirubin 0.3 (0.2-1.3) mg/dL AST 15 (14-36) U/L ALT 11 (9-52) U/L Alkaline Phosphatase 97 (38-126) U/L Troponin I (0.000-0.034) ng/mL NT-Pro-B Natriuret Pep 555 pg/mL Total Protein 6.7 (6.3-8.2) g/dL Albumin 3.6 (3.5-5.0) g/dL 06/05/19 06/05/19 Range/Units 12:48 12:48 WBC (3.8-10.6) k/uL RBC (3.80-5.40) m/uL Hgb (11.4-16.0) gm/dL Hct (34.0-46.0) % MCV (80.0-100.0) fL MCH (25.0-35.0) pg MCHC (31.0-37.0) g/dL RDW (11.5-15.5) % Plt Count (150-450) k/uL Neutrophils % % Lymphocytes % % Monocytes % % Eosinophils % % Basophils % % Neutrophils # (1.3-7.7) k/uL Lymphocytes # (1.0-4.8) k/uL Monocytes # (0-1.0) k/uL Eosinophils # (0-0.7) k/uL Basophils # (0-0.2) k/uL PT 10.5 (9.0-12.0) sec INR 1.0 (<1.2) APTT 29.9 (22.0-30.0) sec Sodium (137-145) mmol/L Potassium (3.5-5.1) mmol/L Chloride (98-107) mmol/L Carbon Dioxide (22-30) mmol/L Anion Gap mmol/L BUN (7-17) mg/dL Creatinine (0.52-1.04) mg/dL Est GFR (CKD-EPI)AfAm (>60 ml/min/1.73 sqM) Est GFR (CKD-EPI)NonAf (>60 ml/min/1.73 sqM) Glucose (74-99) mg/dL Calcium (8.4-10.2) mg/dL Magnesium (1.6-2.3) mg/dL Total Bilirubin (0.2-1.3) mg/dL AST (14-36) U/L ALT (9-52) U/L Alkaline Phosphatase (38-126) U/L Troponin I <0.012 (0.000-0.034) ng/mL NT-Pro-B Natriuret Pep pg/mL Total Protein (6.3-8.2) g/dL Albumin (3.5-5.0) g/dL Critical Care Time Critical Care Time: Yes Total Critical Care Time: 35 Disposition Clinical Impression: COPD with acute exacerbation Disposition: ADMITTED IP TO THIS [facility] Referrals: Nonstaff,Physician [REFERRING] - 1-2 days Time of Disposition: 14:29
[2019-06-05 13:04] LABS: Basophils # (A) 0.1 k/uL (0-0.2); Basophils % (A) 1 %; Eosinophils # (A) 0.6 k/uL (0-0.7); Eosinophils % (A) 7 %; HCT 36.2 % (34.0-46.0); HGB 11.9 gm/dL (11.4-16.0); Lymphocytes # (A) 1.3 k/uL (1.0-4.8); Lymphocytes % (A) 15 %; MCH 30.3 pg (25.0-35.0); MCHC 32.8 g/dL (31.0-37.0); MCV 92.4 fL (80.0-100.0); Mean Platelet Volume 6.8; Monocytes # (A) 0.4 k/uL (0-1.0); Monocytes % (A) 5 %; Neutrophils # (A) 5.8 k/uL (1.3-7.7); Neutrophils % (A) 69 %; Platelet Count 284 k/uL (150-450); RBC 3.91 m/uL (3.80-5.40); RDW 14.8 % (11.5-15.5); WBC 8.4 k/uL (3.8-10.6)
[2019-06-05 13:15] LABS: Partial Thromboplastin Time 29.9 sec (22.0-30.0); Prothrombin Time 10.5 sec (9.0-12.0)
[2019-06-05 13:21] LABS: ALT 11 U/L (9-52); AST 15 U/L (14-36); African American GFR (CKD) >90 (>60 ml/min/1.73 sqM); Albumin 3.6 g/dL (3.5-5.0); Alkaline Phosphatase 97 U/L (38-126); Anion Gap 10 mmol/L; Blood Urea Nitrogen 8 mg/dL (7-17); Calcium 9.2 mg/dL (8.4-10.2); Carbon Dioxide 26 mmol/L (22-30); Chloride 105 mmol/L (98-107); Glucose 89 mg/dL (74-99); Magnesium 2.2 mg/dL (1.6-2.3); Sodium 141 mmol/L (137-145); Total Bilirubin 0.3 mg/dL (0.2-1.3); Total Protein 6.7 g/dL (6.3-8.2)
--- NOTE | 2019-06-05 14:01 | XR ---
EXAMINATION TYPE: XR chest 2V DATE OF EXAM: 06/05/2019 COMPARISON: 07/11/2016 HISTORY: Shortness of breath TECHNIQUE: Frontal and lateral views of the chest are obtained. FINDINGS: Scattered senescent parenchymal changes noted. Hyperinflation compatible with COPD. No evidence for infiltrate. No evidence for atelectasis. Heart size is stable. Pacer device is in place. Mediastinal structures are stable and grossly unremarkable. No evidence for hilar prominence. Degenerative changes dorsal spine. IMPRESSION: 1. No evidence for acute pulmonary disease.
[2019-06-05] MEDS ORDERED: IPRATROPIUM-ALBUTEROL 3 ML NEB INHALATION PRN (14:29)
[2019-06-05] MEDS: methylPREDNISolone SOD SUCCI 40 MG/ML 1 ML VIAL IV SCH ×2 (16:36→23:26)
[2019-06-05] MEDS ORDERED: methylPREDNISolone SOD SUCCI 125 MG/2 ML VIAL IV SCH (18:00)
[2019-06-05] MEDS: ALBUTEROL NEBULIZED 2.5 MG/3 ML INHALATION SCH (20:40)
[2019-06-05] MEDS: SYMBICORT 160-4.5 MCG INHALER INHALATION SCH ×2 (20:40→20:46)
--- NOTE | 2019-06-05 21:21 | HP ---
HISTORY AND PHYSICAL CHIEF COMPLAINT: Difficulty breathing. HISTORY OF PRESENT ILLNESS: This is another admission for this 79-year-old white female with COPD. She used to smoke but she stopped about 8 years ago. She manages at home with updrafts and O2 on a p.r.n. basis. She started to get more and more short of breath and she presented to the emergency room. REVIEW OF SYSTEMS: She has had no headaches, CVAs, change in vision or hearing, cough, hemoptysis, chest pain, heart disease, orthopnea, PND, abdominal pain, hematemesis, melena, hematochezia, jaundice, hepatitis, cirrhosis, hematuria, renal failure, incontinence, dysuria, etc. SHE IS ALLERGIC TO LATEX. Past medical history, family history, social histories reveal that she is ALLERGIC TO LATEX. USUAL MEDICATIONS INCLUDE: Updrafts with albuterol, vitamin D, Xanax 0.5 once a day p.r.n., apixaban 2.5 b.i.d., carbidopa levodopa 50-200 twice a day, diltiazem ER 180 mg once a day, Breo 232-14 twice a day, Lasix 20 mg once a day, montelukast 10 mg once a day, sotalol 120 mg b.i.d., and Spiriva once a day. PHYSICAL EXAM: Blood pressure is 127/71, pulse 75, respirations of 18 and she is afebrile. In general, she appeared to be slender and in no acute distress. She was short of breath. Head, ears, eyes, nose, mouth, and throat were normal. Neck veins not distended. Carotids normal. Chest demonstrated increased AP diameter with poor breath sounds and scattered wheezes, rales and rhonchi throughout. Cardiac exam demonstrated what sounded like normal sinus rhythm and no murmurs or extra sounds. Abdomen is soft and nontender. Extremities are normal and neurologically she is intact. IMPRESSION: She is admitted to the hospital with diagnoses of: 1. Exacerbation of chronic obstructive pulmonary disease. 2. History of hypertension. 3. ? history of arrhythmia. PLAN: 1. Bed rest. 2. IV fluids. 3. IV and inhaled steroids. 4. Updrafts. MMODL / IJN: [id number] /
[2019-06-05] MEDS: APIXABAN 2.5 MG TABLET PO SCH (21:49)
[2019-06-05] MEDS: SOTALOL 120 MG TAB PO SCH (21:50)
[2019-06-06] MEDS: ALBUTEROL NEBULIZED 2.5 MG/3 ML INHALATION PRN (01:54)
[2019-06-06] MEDS: IPRATROPIUM 0.5 MG/2.5 ML NEBU INHALATION SCH ×4 (08:03→20:28)
[2019-06-06] MEDS: SYMBICORT 160-4.5 MCG INHALER INHALATION SCH ×3 (08:03→20:29)
[2019-06-06] MEDS: ALBUTEROL NEBULIZED 2.5 MG/3 ML INHALATION SCH ×4 (08:03→20:28)
[2019-06-06] MEDS: methylPREDNISolone SOD SUCCI 40 MG/ML 1 ML VIAL IV SCH ×2 (08:33→18:10)
[2019-06-06] MEDS: ALPRAZolam 0.5 MG TAB PO SCH (08:34)
[2019-06-06] MEDS: FUROSEMIDE 20 MG TAB PO SCH (08:34)
[2019-06-06] MEDS: DILTIAZEM CD 180 MG CAP.ER.24H PO SCH (08:34)
[2019-06-06] MEDS: APIXABAN 2.5 MG TABLET PO SCH ×2 (08:34→21:20)
[2019-06-06] MEDS: MONTELUKAST 10 MG TAB PO SCH (08:34)
[2019-06-06] MEDS: SOTALOL 120 MG TAB PO SCH ×2 (08:34→21:20)
[2019-06-06] MEDS: CARBIDOPA-LEVODOPA ER 50-200MG 1 EACH TABLET.ER PO SCH ×2 (08:35→12:59)
[2019-06-06] MEDS: FLUTICASONE 50MCG/SPRAY NASAL 16GM EA NOSTRIL SCH (12:59)
[2019-06-06] MEDS: guaiFENesin 600 MG TABLET.ER PO SCH ×2 (12:59→21:20)
--- NOTE | 2019-06-06 19:58 | PN ---
PROGRESS NOTE CHIEF COMPLAINT: Examination of COPD. HISTORY OF PRESENT ILLNESS: This lady is not doing much better. She would like Mucinex, which she uses at home, as well as a steroid nasal spray, which she also has at home. REVIEW OF SYSTEMS: She denies any chest pain, fever, chills, etc. PHYSICAL EXAMINATION: Chest demonstrates increased AP diameter with dorsal kyphosis and poor breath sounds. There is still inspiratory and expiratory wheezing with scattered rales and rhonchi. Cardiac exam is normal. IMPRESSION: Exacerbation of chronic obstructive pulmonary disease. PLAN: 1. Nasacort. 2. Mucinex. 3. Continue with the current program. MMODL / IJN: [id number] /
[2019-06-06] MEDS: MAGNESIUM HYDROXIDE 2,400 MG/10 ML CUP PO PRN (21:20)
[2019-06-06] MEDS: traZODone HCL 50 MG TAB PO PRN (22:29)
[2019-06-07] MEDS: methylPREDNISolone SOD SUCCI 40 MG/ML 1 ML VIAL IV SCH ×4 (00:54→23:36)
[2019-06-07] MEDS: ALBUTEROL NEBULIZED 2.5 MG/3 ML INHALATION PRN (03:14)
[2019-06-07] MEDS: APIXABAN 2.5 MG TABLET PO SCH ×2 (08:02→20:25)
[2019-06-07] MEDS: ALPRAZolam 0.5 MG TAB PO SCH (08:02)
[2019-06-07] MEDS: guaiFENesin 600 MG TABLET.ER PO SCH ×2 (08:02→20:25)
[2019-06-07] MEDS: FUROSEMIDE 20 MG TAB PO SCH (08:02)
[2019-06-07] MEDS: DOCUSATE 100 MG CAP PO PRN (08:02)
[2019-06-07] MEDS: IPRATROPIUM 0.5 MG/2.5 ML NEBU INHALATION SCH ×4 (08:03→20:07)
[2019-06-07] MEDS: MONTELUKAST 10 MG TAB PO SCH (08:03)
[2019-06-07] MEDS: ALBUTEROL NEBULIZED 2.5 MG/3 ML INHALATION SCH ×4 (08:03→20:07)
[2019-06-07] MEDS: SYMBICORT 160-4.5 MCG INHALER INHALATION SCH ×3 (08:03→20:23)
[2019-06-07] MEDS: CARBIDOPA-LEVODOPA ER 50-200MG 1 EACH TABLET.ER PO SCH ×2 (08:06→13:04)
[2019-06-07] MEDS: FLUTICASONE 50MCG/SPRAY NASAL 16GM EA NOSTRIL SCH (08:06)
[2019-06-07] MEDS: DILTIAZEM CD 180 MG CAP.ER.24H PO SCH (08:06)
[2019-06-07] MEDS: SOTALOL 120 MG TAB PO SCH ×2 (08:06→20:26)
[2019-06-07] MEDS: MAGNESIUM HYDROXIDE 2,400 MG/10 ML CUP PO PRN (13:04)
--- NOTE | 2019-06-07 14:50 | PN ---
PROGRESS NOTE CHIEF COMPLAINT: Exacerbation of COPD. HISTORY OF PRESENT ILLNESS: This lady is feeling a little worse. She feels more short of breath. She has had no fever or chills. PHYSICAL EXAMINATION: Breath sounds are extremely poor. She still has the anterior and posterior rales and expiratory wheezing. Cardiac exam is normal. IMPRESSION: Exacerbation of chronic obstructive pulmonary disease. PLAN: Continue treatment and hold up discharge until pulmonary function has improved. MMODL / IJN: [id number] /
[2019-06-07] MEDS: traZODone HCL 50 MG TAB PO PRN (20:26)
[2019-06-07 21:11] VITALS: RESP 16
[2019-06-08 04:02] VITALS: TEMP 97.6
[2019-06-08] MEDS: ALBUTEROL NEBULIZED 2.5 MG/3 ML INHALATION PRN (05:54)
[2019-06-08] MEDS: CARBIDOPA-LEVODOPA ER 50-200MG 1 EACH TABLET.ER PO SCH ×2 (06:08→13:14)
[2019-06-08] MEDS: SYMBICORT 160-4.5 MCG INHALER INHALATION SCH ×2 (08:10→08:32)
[2019-06-08] MEDS: IPRATROPIUM 0.5 MG/2.5 ML NEBU INHALATION SCH ×2 (08:11→12:02)
[2019-06-08] MEDS: ALBUTEROL NEBULIZED 2.5 MG/3 ML INHALATION SCH ×2 (08:11→12:02)
[2019-06-08] MEDS: FUROSEMIDE 20 MG TAB PO SCH (08:28)
[2019-06-08] MEDS: APIXABAN 2.5 MG TABLET PO SCH (08:28)
[2019-06-08] MEDS: ALPRAZolam 0.5 MG TAB PO SCH (08:28)
[2019-06-08] MEDS: DOCUSATE 100 MG CAP PO PRN (08:28)
[2019-06-08] MEDS: MAGNESIUM HYDROXIDE 2,400 MG/10 ML CUP PO PRN (08:28)
[2019-06-08] MEDS: guaiFENesin 600 MG TABLET.ER PO SCH (08:28)
[2019-06-08] MEDS: MONTELUKAST 10 MG TAB PO SCH (08:29)
[2019-06-08] MEDS: methylPREDNISolone SOD SUCCI 40 MG/ML 1 ML VIAL IV SCH (08:31)
[2019-06-08] MEDS: DILTIAZEM CD 180 MG CAP.ER.24H PO SCH (08:31)
[2019-06-08] MEDS: SOTALOL 120 MG TAB PO SCH (08:31)
[2019-06-08] MEDS: FLUTICASONE 50MCG/SPRAY NASAL 16GM EA NOSTRIL SCH (08:31)
[2019-06-08 13:07] VITALS: BP 126/76; PULSE 63
--- NOTE | 2019-06-08 15:37 | DS ---
DISCHARGE SUMMARY CHIEF COMPLAINT: Difficulty breathing. HISTORY OF PRESENT ILLNESS AND PHYSICAL EXAMINATION: Details of this lady's history and physical can be found in the initial workup. LABORATORY STUDIES: While she was in the hospital she had laboratory studies, details of which can be found in the laboratory section of her chart. COURSE IN HOSPITAL: After admission, she was placed on bedrest, started on intravenous fluids, IV and inhaled steroids and updrafts. She improved slowly. She gradually was able to be more ambulatory and move about without significant respiratory distress. It was felt she could go home on the . She will go home on her usual activity, diet and medication and she will be given a Medrol Dosepak. She will be seen in the office in 4 or 5 days in followup. FINAL DIAGNOSES: Exacerbation of chronic obstructive pulmonary disease. OPERATIONS: None. CONSULTATIONS: None. She is improved. CALLI / AAMIR: [id number] /
[2019-06-09] MEDS ORDERED: methylPREDNISolone 4 MG TAB TAPER PO SCH (09:00)
== END 2019-06-08 14:43 | disposition home health service (06) | DRG 192 ==
LOC: EC 12:23 → 3NMEDONC 14:39 → OBSVTOIN 06-07 10:13 → 3NMEDONC 06-08 09:33
PROVIDERS: ADMIT Family Medicine; ATTEND Family Medicine
DX: J44.1 Chronic obstructive pulmonary disease with (acute) exacerbation (principal); I10 Essential (primary) hypertension; I48.91 Unspecified atrial fibrillation; Z79.01 Long term (current) use of anticoagulants; Z85.038 Personal history of other malignant neoplasm of large intestine; Z87.891 Personal history of nicotine dependence; Z90.710 Acquired absence of both cervix and uterus; Z90.81 Acquired absence of spleen; Z79.899 Other long term (current) drug therapy; Z91.030 Bee allergy status; Z91.040 Latex allergy status; Z95.0 Presence of cardiac pacemaker
CPT/HCPCS: 36415; 71046; 80053; 83735; 83880; 84484; 85025; 85610; 85730; 87040; 93005; 94640; 94760; 96374; 99291

== ENCOUNTER 2019-07-08 01:57 | Emergency (ER) | payer MEDICARE, BC ==
[2019-07-08 02:04] VITALS: TEMP 97.9
[2019-07-08] MEDS ORDERED: ORPHENADRINE 30 MG/ML 2 ML VIAL IM STA (02:21)
[2019-07-08] MEDS ORDERED: KETOROLAC 60 MG/2 ML VIAL IM STA (02:21)
[2019-07-08] MEDS ORDERED: ACET/COD 300 MG/30 MG STARTER PACK 6 TAB BTL PO STA (02:21)
--- NOTE | 2019-07-08 02:21 | ED ---
Back Pain HPI - General Chief Complaint: Back Pain/Injury Stated Complaint: Back Pain Time Seen by Provider: 07/08/19 02:02 Source: patient, EMS, RN notes reviewed, old records reviewed Limitations: no limitations - History of Present Illness Initial Comments: Patient is an 79-year-old female presents emergency department today with mid and bilateral lower back pain. Patient reports symptoms started around 7 PM when getting out of her recliner chair. Patient states that she feels that the pain seems to worse with certain movements. She took a Tylenol earlier today with no relief of her pain. She reports she try to sleep in a but the pain seemed like it was getting worse so she talked to her daughter whom she lives with and came here. Patient arrives EMS. She denies any abdominal pain. Denies any fall or trauma. Denies saddle anesthesias. - Related Data Home Medications Medication Instructions Recorded Confirmed ALPRAZolam [Xanax] 0.5 mg PO DAILY 07/11/16 07/08/19 Cholecalciferol [Vitamin D3 (25 5,000 unit PO DAILY 07/11/16 07/08/19 Mcg = 1000 Iu)] Furosemide [Lasix] 20 mg PO DAILY 07/11/16 07/08/19 Montelukast [Singulair] 10 mg PO DAILY 07/11/16 07/08/19 Apixaban [Eliquis] 2.5 mg PO BID 05/11/19 07/08/19 Carbidopa-Levodopa ER 50-200Mg 1 tab PO BID@0700,1200 05/11/19 07/08/19 [Sinemet CR 50-200 mg] Fluticasone/Salmeterol 1 puff INHALATION RT-BID 05/11/19 07/08/19 [Fluticasone-Salmeterol 232-14] Multivitamin [Multivitamins Adult 1 tab PO DAILY 05/11/19 07/08/19 Gummies] Sotalol [Betapace] 120 mg PO BID 05/11/19 07/08/19 Vitamin C Time Release 500mg 500 mg PO DAILY 05/11/19 07/08/19 Diltiazem HCl [Diltiazem 24Hr ER] 180 mg PO DAILY 06/05/19 07/08/19 Tiotropium [place] [Spiriva] 1 cap INHALATION RT-DAILY 06/05/19 07/08/19 Previous Rx's Medication Instructions Recorded Albuterol Nebulized [Ventolin 2.5 mg INHALATION RT-QID PRN #30 05/13/19 Nebulized] nebu Acetaminophen-Codeine 300-30mg 1 tab PO Q6H PRN 3 Days #12 tablet 07/08/19 [Tylenol w/codeine #3] Cyclobenzaprine [Flexeril] 10 mg PO TID #10 tab 07/08/19 Allergies Allergy/AdvReac Type Severity Reaction Status Date / Time adhesive tape Allergy Rash/Hives Verified 07/08/19 02:05 latex Allergy Rash/Hives Verified 07/08/19 02:04 venom-honey bee Allergy Rash/Hives Verified 07/08/19 02:04 Review of Systems ROS Statement: Those systems with pertinent positive or pertinent negative responses have been documented in the HPI. ROS Other: All systems not noted in ROS Statement are negative. 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 History of Any Multi-Drug Resistant Organisms: None Reported Past Surgical History: Bladder Surgery, Bowel Resection, Hysterectomy, Pacemaker Additional Past Surgical History / Comment(s): 08/2012 pacemaker, bladder tumor resection, splenectomy d/t injury Past Anesthesia/Blood Transfusion Reactions: No Reported Reaction Type of Cardiac Device: Permanent Pacemaker Device Placement Date:: Unknown Past Psychological History: Anxiety Smoking Status: Former smoker Past Alcohol Use History: None Reported Past Drug Use History: None Reported - Past Family History Daughter(s) Family Medical History: No Reported History Father History Unknown: Yes Family Medical History: Unable to Obtain Mother History Unknown: Yes Family Medical History: No Reported History Additional Family Medical History / Comment(s): Mother was healthy and lived to be 96yrs. General Exam - General Exam Comments Initial Comments: 79-year-old female. Alert and oriented 3. Patient appears in no significant distress at this time. Limitations: no limitations General appearance: alert, in no apparent distress Head exam: Present: atraumatic Eye exam: Present: normal appearance, PERRL, EOMI. Absent: scleral icterus, conjunctival injection, periorbital swelling ENT exam: Present: normal exam, mucous membranes moist Neck exam: Present: normal inspection. Absent: tenderness, meningismus, lymphadenopathy Respiratory exam: Present: normal lung sounds bilaterally. Absent: respiratory distress, wheezes, rales, rhonchi, stridor Cardiovascular Exam: Present: regular rate, normal rhythm, normal heart sounds. Absent: systolic murmur, diastolic murmur, rubs, gallop, clicks GI/Abdominal exam: Present: soft, normal bowel sounds. Absent: distended, tenderness, guarding, rebound, rigid Extremities exam: Present: normal inspection, full ROM, normal capillary refill, other (left ankle swelling that is chronic ). Absent: tenderness, pedal edema, joint swelling, calf tenderness Back exam: Present: normal inspection, full ROM, other (tenderness over bilateral lumbar paraspinal musces. ) Neurological exam: Present: alert, oriented X3, CN II-XII intact Psychiatric exam: Present: normal affect, normal mood Skin exam: Present: warm, dry, intact, normal color. Absent: rash Course Vital Signs 07/08/19 01:59 Temperature 97.9 F Pulse Rate 69 Respiratory 18 Rate Blood Pressure 144/77 O2 Sat by Pulse 94 L Oximetry Medical Decision Making - Medical Decision Making 79 year old female presents today for concern for back pain, symptoms started when she got out of her recliner chair this afternoon at 7 PM. She took a Tylenol earlier today. She try to sleep but felt that her pain was persisting and she needed to come here. Denies any abdominal pain saddle anesthesias. Denies any fevers. Patient at this time has no signs of urinary tract infection. Pain is worse with positioning. I discussed x-rays. They're completed and show evidence of a T11-T12 compression fracture that appeared be old and prior studies were this was noted. I did discuss patient's symptoms seem and related to muscle spasm and advised that we can put the Patient on anti-inflammatory medication. Discussed doing warm compresses over the back and she could follow-up with orthopedic library specialist regards to this history of compression fractures. Patient is agreeable to treatment plan will comply. - Lab Data Lab Results 07/08/19 Range/Units 02:20 Urine Color Light Yellow Urine Appearance Clear (Clear) Urine pH 6.5 (5.0-8.0) Ur Specific [place] 1.006 (1.001-1.035) Urine Protein Negative (Negative) Urine Glucose (UA) Negative (Negative) Urine Ketones Negative (Negative) Urine Blood Negative (Negative) Urine Nitrite Negative (Negative) Urine Bilirubin Negative (Negative) Urine Urobilinogen <2.0 (<2.0) mg/dL Ur Leukocyte Esterase Moderate H (Negative) Urine RBC 1 (0-5) /hpf Urine WBC 15 H (0-5) /hpf Urine Bacteria Moderate H (None) /hpf Urine Mucus Rare H (None) /hpf - Radiology Data Radiology results: report reviewed There are old compresssion fractures of T11 and T12 unchanged. No acute fracture seen. Osteopenia. Compression fracture in lower thoracic spine unchanged. No acute fracture. Disposition Clinical Impression: Back pain, History of compression fracture of spine, Muscle pain Disposition: HOME SELF-CARE Condition: Good Instructions (If sedation given, give patient instructions): Acute Low Back Pain (ED) Additional Instructions: Patient is to follow up with her primary care physician. Continue to take all normal medications at home. Return to the emergency department if any alarming signs or symptoms occur. Prescriptions: Cyclobenzaprine [Flexeril] 10 mg PO TID #10 tab Acetaminophen-Codeine 300-30mg [Tylenol w/codeine #3] 1 tab PO Q6H PRN 3 Days #12 tablet PRN Reason: Pain Is patient prescribed a controlled substance at d/c from ED?: No Referrals: Tammy Banks MD [Primary Care Provider] - 1-2 days Pooja Nunez DO [Doctor of Osteopathic Medicine] - 1-2 days Time of Disposition: 03:27
[2019-07-08 02:41] LABS: Appearance,Urine Clear (Clear); Bacteria,Urine Moderate /hpf; Bilirubin,Urine Negative (Negative); Blood,Urine Negative (Negative); Color,Urine Light Yellow; Glucose,Urine (UA) Negative (Negative); Ketones,Urine Negative (Negative); Leukocyte Esterase,Urine Moderate (Negative); Mucus,Urine Rare /hpf; Nitrite,Urine Negative (Negative); PH, Urine 6.5 (5.0-8.0); Protein,Urine Negative (Negative); RBC,Urine 1 /hpf (0-5); Specific Gravity,Urine 1.006 (1.001-1.035); Urobilinogen,Urine <2.0 mg/dL (<2.0)
--- NOTE | 2019-07-08 02:56 | XR ---
EXAMINATION TYPE: XR lumbar spine 2 or 3V DATE OF EXAM: 07/08/2019 COMPARISON: September 07, 2017 HISTORY: Back pain TECHNIQUE: 3 views FINDINGS: Vertebra have normal alignment. There is osteopenia. There is 30% anterior wedging of T12. There is 15% wedging of T11. There is normal-appearing sacroiliac joints. Posterior elements are inta ct. There is no significant disc space narrowing. Abdominal aorta is atheromatous. IMPRESSION: There are old compression fractures of T11 and T12 unchanged. No acute fracture seen. Ost eopenia.
--- NOTE | 2019-07-08 02:58 | XR ---
EXAMINATION TYPE: XR thoracic spine 2V DATE OF EXAM: 07/08/2019 COMPARISON: 05/11/2019 HISTORY: Back pain TECHNIQUE: 3 views FINDINGS: Thoracic vertebra have fairly normal alignment. There is osteopenia. There is anterior wedg ing of T11 and T12 up to 30%. There is no paraspinal mass. Posterior elements are intact. Thoracic ao rta is atheromatous. IMPRESSION: Compression fractures in the lower thoracic spine unchanged. No acute fracture seen.
[2019-07-08 03:36] VITALS: BP 124/84; PULSE 65; RESP 17
== END 2019-07-08 03:49 | disposition home or self-care (01) ==
LOC: EC 01:57
DX: M54.5 Low back pain (principal); M79.10 Myalgia, unspecified site; J44.9 Chronic obstructive pulmonary disease, unspecified; I10 Essential (primary) hypertension; F41.9 Anxiety disorder, unspecified; G20 Parkinson's disease; Z87.81 Personal history of (healed) traumatic fracture; I48.91 Unspecified atrial fibrillation; Z85.51 Personal history of malignant neoplasm of bladder; Z86.73 Personal history of transient ischemic attack (TIA), and cerebral infarction without residual deficits; Z85.038 Personal history of other malignant neoplasm of large intestine; Z95.0 Presence of cardiac pacemaker; Z87.891 Personal history of nicotine dependence; Z79.01 Long term (current) use of anticoagulants; Z79.51 Long term (current) use of inhaled steroids; Z79.899 Other long term (current) drug therapy; Z91.048 Other nonmedicinal substance allergy status; Z91.040 Latex allergy status; Z91.030 Bee allergy status
CPT/HCPCS: 72070; 72100; 81001; 87086; 96372; 99284

== ENCOUNTER 2019-08-11 09:13 | Inpatient (IN) | payer MEDICARE, BC ==
[2019-08-11] MEDS ORDERED: SODIUM CHLORIDE 0.9% 500 ML 500 ML IV ONE (09:52)
[2019-08-11 10:07] LABS: Glucose,Whole Blood 99 mg/dL (75-99)
[2019-08-11 10:24] LABS: Basophils # (A) 0.1 k/uL (0-0.2); Basophils % (A) 1 %; Eosinophils # (A) 0.3 k/uL (0-0.7); Eosinophils % (A) 3 %; HCT 42.5 % (34.0-46.0); HGB 13.7 gm/dL (11.4-16.0); Lymphocytes # (A) 1.3 k/uL (1.0-4.8); Lymphocytes % (A) 12 %; MCH 30.6 pg (25.0-35.0); MCHC 32.3 g/dL (31.0-37.0); MCV 94.7 fL (80.0-100.0); Mean Platelet Volume 9.1; Monocytes # (A) 0.4 k/uL (0-1.0); Monocytes % (A) 4 %; Neutrophils % (A) 78 %; Platelet Count 247 k/uL (150-450); RBC 4.49 m/uL (3.80-5.40); RDW 14.2 % (11.5-15.5); WBC 10.2 k/uL (3.8-10.6)
--- NOTE | 2019-08-11 10:28 | CT ---
EXAMINATION TYPE: CT brain wo con DATE OF EXAM: 08/11/2019 COMPARISON: 11/29/2017 HISTORY: 79-year-old female Hallucinations TECHNIQUE: Examination was done in axial plane without intravenous contrast. Coronal and sagittal r econstructions performed. CT DLP: 1093.4 mGycm Automated exposure control for dose reduction was used. FINDINGS: There is no evidence of acute intracranial hemorrhage, acute ischemic changes, mass, mass-effect, or extra-axial fluid collection. There is no effacement of cerebral sulci or basal subarachnoid cister ns. There is no hydrocephalus. There is no midline shift. Huber-white matter distinction is preserv ed. [id number] patchy white matter hypodensities in both cerebral hemispheres. Moderate bifrontal a trophy. Partially empty sella. Paranasal sinuses and mastoid air cells well pneumatized. Orbits and globes are intact. IMPRESSION: Bifrontal atrophy and similar patchy changes of chronic small vessel ischemic disease. No acute intra cranial abnormality seen.
--- NOTE | 2019-08-11 10:29 | ED ---
Altered Mental Status HPI - General Chief Complaint: Altered Mental Status Stated Complaint: hallucinations Time Seen by Provider: 08/11/19 09:40 Source: patient, RN notes reviewed Mode of arrival: ambulatory Limitations: no limitations - History of Present Illness Initial Comments: This 79-year-old female presents emergency Department with daughter chief complaint of altered mental status. In the last 24 hours she has been very confused she does have periods of lucency in which she can hold a conversation no was a time she repeats numbers coming 1-10. Patient herself has no complaints denies any headache, discoloration, chest pain, abdominal pain, nausea vomiting diarrhea constipation. Daughter states that she has been treated for urinary tract infection in the last 1 month but had a follow-up and was told urinalysis was clear. Patient denies any current symptoms. Daughter denies any other infections including URI patient does take blood thinners for A. fib. Patient denies any head injury - Related Data Home Medications Medication Instructions Recorded Confirmed ALPRAZolam [Xanax] 0.5 mg PO DAILY 07/11/16 07/08/19 Cholecalciferol [Vitamin D3 (25 5,000 unit PO DAILY 07/11/16 07/08/19 Mcg = 1000 Iu)] Furosemide [Lasix] 20 mg PO DAILY 07/11/16 07/08/19 Montelukast [Singulair] 10 mg PO DAILY 07/11/16 07/08/19 Apixaban [Eliquis] 2.5 mg PO BID 05/11/19 07/08/19 Carbidopa-Levodopa ER 50-200Mg 1 tab PO BID@0700,1200 05/11/19 07/08/19 [Sinemet CR 50-200 mg] Fluticasone/Salmeterol 1 puff INHALATION RT-BID 05/11/19 07/08/19 [Fluticasone-Salmeterol 232-14] Multivitamin [Multivitamins Adult 1 tab PO DAILY 05/11/19 07/08/19 Gummies] Sotalol [Betapace] 120 mg PO BID 05/11/19 07/08/19 Vitamin C Time Release 500mg 500 mg PO DAILY 05/11/19 07/08/19 Diltiazem HCl [Diltiazem 24Hr ER] 180 mg PO DAILY 06/05/19 07/08/19 Tiotropium [place] [Spiriva] 1 cap INHALATION RT-DAILY 06/05/19 07/08/19 Previous Rx's Medication Instructions Recorded Albuterol Nebulized [Ventolin 2.5 mg INHALATION RT-QID PRN #30 05/13/19 Nebulized] nebu Acetaminophen-Codeine 300-30mg 1 tab PO Q6H PRN 3 Days #12 tablet 07/08/19 [Tylenol w/codeine #3] Cyclobenzaprine [Flexeril] 10 mg PO TID #10 tab 07/08/19 Allergies Allergy/AdvReac Type Severity Reaction Status Date / Time adhesive tape Allergy Rash/Hives Verified 08/11/19 09:28 latex Allergy Rash/Hives Verified 08/11/19 09:28 venom-honey bee Allergy Rash/Hives Verified 08/11/19 09:28 Review of Systems ROS Statement: Those systems with pertinent positive or pertinent negative responses have been documented in the HPI. ROS Other: All systems not noted in ROS Statement are negative. 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 History of Any Multi-Drug Resistant Organisms: None Reported Past Surgical History: Bladder Surgery, Bowel Resection, Hysterectomy, Pacemaker Additional Past Surgical History / Comment(s): 08/2012 pacemaker, bladder tumor resection, splenectomy d/t injury Past Anesthesia/Blood Transfusion Reactions: No Reported Reaction Type of Cardiac Device: Permanent Pacemaker Device Placement Date:: Unknown Past Psychological History: Anxiety Smoking Status: Former smoker Past Alcohol Use History: None Reported Past Drug Use History: None Reported - Past Family History Daughter(s) Family Medical History: No Reported History Father History Unknown: Yes Family Medical History: Unable to Obtain Mother History Unknown: Yes Family Medical History: No Reported History Additional Family Medical History / Comment(s): Mother was healthy and lived to be 96yrs. General Exam Limitations: no limitations General appearance: alert, in no apparent distress Head exam: Present: atraumatic, normocephalic, normal inspection Eye exam: Present: PERRL, EOMI. Absent: normal appearance (Unequal pupil sizes noted left greater than right), scleral icterus, conjunctival injection, periorbital swelling ENT exam: Present: normal exam, normal oropharynx, mucous membranes moist, TM's normal bilaterally Neck exam: Present: normal inspection, full ROM. Absent: tenderness, meningismus, lymphadenopathy Respiratory exam: Present: normal lung sounds bilaterally. Absent: respiratory distress, wheezes, rales, rhonchi, stridor Cardiovascular Exam: Present: regular rate, normal rhythm, normal heart sounds. Absent: systolic murmur, diastolic murmur, rubs, gallop, clicks GI/Abdominal exam: Present: soft, normal bowel sounds. Absent: distended, tend erness, guarding, rebound, rigid Extremities exam: Present: other (Mild left leg swelling) Neurological exam: Present: alert. Absent: oriented X3, CN II-XII intact Skin exam: Present: warm, dry, intact, normal color. Absent: rash Course Vital Signs 08/11/19 08/11/19 08/11/19 09:25 09:50 09:52 Temperature 97.9 F Pulse Rate 81 81 Respiratory 18 18 Rate Blood Pressure 134/85 148/81 148/81 O2 Sat by Pulse 94 L 93 L Oximetry 08/11/19 08/11/19 08/11/19 10:00 10:30 11:00 Temperature Pulse Rate 86 Respiratory 21 Rate Blood Pressure 148/81 148/81 154/92 O2 Sat by Pulse 92 L 94 L 92 L Oximetry 08/11/19 08/11/19 08/11/19 11:06 11:30 11:37 Temperature Pulse Rate 86 85 84 Respiratory 18 18 Rate Blood Pressure 151/86 151/86 O2 Sat by Pulse 92 L 94 L Oximetry 08/11/19 08/11/19 08/11/19 11:48 12:00 12:11 Temperature Pulse Rate 82 85 85 Respiratory 17 17 Rate Blood Pressure 147/79 147/79 O2 Sat by Pulse 93 L 93 L Oximetry Medical Decision Making - Medical Decision Making CT labs are unremarkable with her attending ABCs and her urinalysis will be given antibiotics at this time pending culture. Patient will be admitted for altered mental status with evaluation with neurology. - Lab Data Result diagrams: 08/11/19 09:30 08/11/19 09:30 Lab Results 08/11/19 08/11/19 08/11/19 Range/Units 09:30 09:30 09:30 WBC 10.2 (3.8-10.6) k/uL RBC 4.49 (3.80-5.40) m/uL Hgb 13.7 (11.4-16.0) gm/dL Hct 42.5 (34.0-46.0) % MCV 94.7 (80.0-100.0) fL MCH 30.6 (25.0-35.0) pg MCHC 32.3 (31.0-37.0) g/dL RDW 14.2 (11.5-15.5) % Plt Count 247 (150-450) k/uL Neutrophils % 78 % Lymphocytes % 12 % Monocytes % 4 % Eosinophils % 3 % Basophils % 1 % Neutrophils # 8.0 H (1.3-7.7) k/uL Lymphocytes # 1.3 (1.0-4.8) k/uL Monocytes # 0.4 (0-1.0) k/uL Eosinophils # 0.3 (0-0.7) k/uL Basophils # 0.1 (0-0.2) k/uL PT 10.9 (9.0-12.0) sec INR 1.0 (<1.2) APTT 27.5 (22.0-30.0) sec Sodium 139 (137-145) mmol/L Potassium 4.4 (3.5-5.1) mmol/L Chloride 106 (98-107) mmol/L Carbon Dioxide 24 (22-30) mmol/L Anion Gap 9 mmol/L BUN 12 (7-17) mg/dL Creatinine 0.62 (0.52-1.04) mg/dL Est GFR (CKD-EPI)AfAm >90 (>60 ml/min/1.73 sqM) Est GFR (CKD-EPI)NonAf 85 (>60 ml/min/1.73 sqM) Glucose 105 H (74-99) mg/dL POC Glucose (mg/dL) (75-99) mg/dL POC Glu Geoscientist ID Plasma Lactic Acid Wong (0.7-2.0) mmol/L Calcium 10.2 (8.4-10.2) mg/dL Magnesium 1.9 (1.6-2.3) mg/dL Total Bilirubin 0.5 (0.2-1.3) mg/dL AST 20 (14-36) U/L ALT 15 (4-34) U/L Alkaline Phosphatase 137 H (38-126) U/L Troponin I (0.000-0.034) ng/mL Total Protein 6.8 (6.3-8.2) g/dL Albumin 4.0 (3.5-5.0) g/dL Urine Color Urine Appearance (Clear) Urine pH (5.0-8.0) Ur Specific [place] (1.001-1.035) Urine Protein (Negative) Urine Glucose (UA) (Negative) Urine Ketones (Negative) Urine Blood (Negative) Urine Nitrite (Negative) Urine Bilirubin (Negative) Urine Urobilinogen (<2.0) mg/dL Ur Leukocyte Esterase (Negative) Urine WBC (0-5) /hpf Ur Squamous Epith Cells (0-4) /hpf Hyaline Casts (0-2) /lpf Urine Mucus (None) /hpf Urine Opiates Screen (NotDetected) Ur Oxycodone Screen (NotDetected) Urine Methadone Screen (NotDetected) Ur Propoxyphene Screen (NotDetected) Ur Barbiturates Screen (NotDetected) U Tricyclic Antidepress (NotDetected) Ur Phencyclidine Scrn (NotDetected) Ur Amphetamines Screen (NotDetected) U Methamphetamines Scrn (NotDetected) U Benzodiazepines Scrn (NotDetected) Urine Cocaine Screen (NotDetected) U Marijuana (THC) Screen (NotDetected) 08/11/19 08/11/19 08/11/19 Range/Units 09:30 09:30 10:05 WBC (3.8-10.6) k/uL RBC (3.80-5.40) m/uL Hgb (11.4-16.0) gm/dL Hct (34.0-46.0) % MCV (80.0-100.0) fL MCH (25.0-35.0) pg MCHC (31.0-37.0) g/dL RDW (11.5-15.5) % Plt Count (150-450) k/uL Neutrophils % % Lymphocytes % % Monocytes % % Eosinophils % % Basophils % % Neutrophils # (1.3-7.7) k/uL Lymphocytes # (1.0-4.8) k/uL Monocytes # (0-1.0) k/uL Eosinophils # (0-0.7) k/uL Basophils # (0-0.2) k/uL PT (9.0-12.0) sec INR (<1.2) APTT (22.0-30.0) sec Sodium (137-145) mmol/L Potassium (3.5-5.1) mmol/L Chloride (98-107) mmol/L Carbon Dioxide (22-30) mmol/L Anion Gap mmol/L BUN (7-17) mg/dL Creatinine (0.52-1.04) mg/dL Est GFR (CKD-EPI)AfAm (>60 ml/min/1.73 sqM) Est GFR (CKD-EPI)NonAf (>60 ml/min/1.73 sqM) Glucose (74-99) mg/dL POC Glucose (mg/dL) 99 (75-99) mg/dL POC Glu Geoscientist ID Anna, [place] Plasma Lactic Acid Wong 1.3 (0.7-2.0) mmol/L Calcium (8.4-10.2) mg/dL Magnesium (1.6-2.3) mg/dL Total Bilirubin (0.2-1.3) mg/dL AST (14-36) U/L ALT (4-34) U/L Alkaline Phosphatase (38-126) U/L Troponin I <0.012 (0.000-0.034) ng/mL Total Protein (6.3-8.2) g/dL Albumin (3.5-5.0) g/dL Urine Color Urine Appearance (Clear) Urine pH (5.0-8.0) Ur Specific [place] (1.001-1.035) Urine Protein (Negative) Urine Glucose (UA) (Negative) Urine Ketones (Negative) Urine Blood (Negative) Urine Nitrite (Negative) Urine Bilirubin (Negative) Urine Urobilinogen (<2.0) mg/dL Ur Leukocyte Esterase (Negative) Urine WBC (0-5) /hpf Ur Squamous Epith Cells (0-4) /hpf Hyaline Casts (0-2) /lpf Urine Mucus (None) /hpf Urine Opiates Screen (NotDetected) Ur Oxycodone Screen (NotDetected) Urine Methadone Screen (NotDetected) Ur Propoxyphene Screen (NotDetected) Ur Barbiturates Screen (NotDetected) U Tricyclic Antidepress (NotDetected) Ur Phencyclidine Scrn (NotDetected) Ur Amphetamines Screen (NotDetected) U Methamphetamines Scrn (NotDetected) U Benzodiazepines Scrn (NotDetected) Urine Cocaine Screen (NotDetected) U Marijuana (THC) Screen (NotDetected) 08/11/19 Range/Units 11:05 WBC (3.8-10.6) k/uL RBC (3.80-5.40) m/uL Hgb (11.4-16.0) gm/dL Hct (34.0-46.0) % MCV (80.0-100.0) fL MCH (25.0-35.0) pg MCHC (31.0-37.0) g/dL RDW (11.5-15.5) % Plt Count (150-450) k/uL Neutrophils % % Lymphocytes % % Monocytes % % Eosinophils % % Basophils % % Neutrophils # (1.3-7.7) k/uL Lymphocytes # (1.0-4.8) k/uL Monocytes # (0-1.0) k/uL Eosinophils # (0-0.7) k/uL Basophils # (0-0.2) k/uL PT (9.0-12.0) sec INR (<1.2) APTT (22.0-30.0) sec Sodium (137-145) mmol/L Potassium (3.5-5.1) mmol/L Chloride (98-107) mmol/L Carbon Dioxide (22-30) mmol/L Anion Gap mmol/L BUN (7-17) mg/dL Creatinine (0.52-1.04) mg/dL Est GFR (CKD-EPI)AfAm (>60 ml/min/1.73 sqM) Est GFR (CKD-EPI)NonAf (>60 ml/min/1.73 sqM) Glucose (74-99) mg/dL POC Glucose (mg/dL) (75-99) mg/dL POC Glu Geoscientist ID Plasma Lactic Acid Wong (0.7-2.0) mmol/L Calcium (8.4-10.2) mg/dL Magnesium (1.6-2.3) mg/dL Total Bilirubin (0.2-1.3) mg/dL AST (14-36) U/L ALT (4-34) U/L Alkaline Phosphatase (38-126) U/L Troponin I (0.000-0.034) ng/mL Total Protein (6.3-8.2) g/dL Albumin (3.5-5.0) g/dL Urine Color Yellow Urine Appearance Clear (Clear) Urine pH 6.0 (5.0-8.0) Ur Specific [place] 1.014 (1.001-1.035) Urine Protein Trace H (Negative) Urine Glucose (UA) Negative (Negative) Urine Ketones 1+ H (Negative) Urine Blood Negative (Negative) Urine Nitrite Negative (Negative) Urine Bilirubin Negative (Negative) Urine Urobilinogen <2.0 (<2.0) mg/dL Ur Leukocyte Esterase Small H (Negative) Urine WBC 10 H (0-5) /hpf Ur Squamous Epith Cells 1 (0-4) /hpf Hyaline Casts 1 (0-2) /lpf Urine Mucus Occasional H (None) /hpf Urine Opiates Screen Not Detected (NotDetected) Ur Oxycodone Screen Not Detected (NotDetected) Urine Methadone Screen Not Detected (NotDetected) Ur Propoxyphene Screen Not Detected (NotDetected) Ur Barbiturates Screen Not Detected (NotDetected) U Tricyclic Antidepress Not Detected (NotDetected) Ur Phencyclidine Scrn Not Detected (NotDetected) Ur Amphetamines Screen Not Detected (NotDetected) U Methamphetamines Scrn Not Detected (NotDetected) U Benzodiazepines Scrn Detected H (NotDetected) Urine Cocaine Screen Not Detected (NotDetected) U Marijuana (THC) Screen Not Detected (NotDetected) Disposition Clinical Impression: Altered mental status, UTI (urinary tract infection) Disposition: ADMITTED IP TO THIS [facility] Condition: Fair Referrals: Tammy Banks MD [Primary Care Provider] - 1-2 days
--- NOTE | 2019-08-11 10:30 | XR ---
EXAMINATION TYPE: XR chest 2V DATE OF EXAM: 08/11/2019 COMPARISON: 06/05/2019 HISTORY: 79-year-old female confusion, altered mental status TECHNIQUE: AP and lateral views FINDINGS: Left anterior chest wall pacemaker generator with right atrial and right ventricular leads. Heart borderline enlarged. Mild interstitial prominence has a chronic appearance. There is some mild patchy density at the right base. Focal density at the left base also noted. No pleural effusion. IMPRESSION: Focal density at the left base probably represents a band of atelectasis. Mild patchy right basilar o pacity could represent atelectasis or early infiltrate. Correlate for any signs/symptoms of pneumonia .
[2019-08-11 10:33] LABS: Partial Thromboplastin Time 27.5 sec (22.0-30.0); Prothrombin Time 10.9 sec (9.0-12.0)
[2019-08-11 10:46] LABS: ALT 15 U/L (4-34); AST 20 U/L (14-36); African American GFR (CKD) >90 (>60 ml/min/1.73 sqM); Alkaline Phosphatase 137 U/L (38-126); Anion Gap 9 mmol/L; Blood Urea Nitrogen 12 mg/dL (7-17); Calcium 10.2 mg/dL (8.4-10.2); Carbon Dioxide 24 mmol/L (22-30); Chloride 106 mmol/L (98-107); Glucose 105 mg/dL (74-99); Magnesium 1.9 mg/dL (1.6-2.3); Non-African American GFR(CKD) 85 (>60 ml/min/1.73 sqM); Potassium 4.4 mmol/L (3.5-5.1); Sodium 139 mmol/L (137-145); Total Bilirubin 0.5 mg/dL (0.2-1.3); Total Protein 6.8 g/dL (6.3-8.2)
[2019-08-11] MEDS ORDERED: IPRATROPIUM-ALBUTEROL 3 ML NEB INHALATION STA (11:29)
[2019-08-11 11:48] LABS: Appearance,Urine Clear (Clear); Bilirubin,Urine Negative (Negative); Blood,Urine Negative (Negative); Color,Urine Yellow; Glucose,Urine (UA) Negative (Negative); Hyaline Casts,Urine 1 /lpf (0-2); Ketones,Urine 1+ (Negative); Leukocyte Esterase,Urine Small (Negative); Mucus,Urine Occasional /hpf; Nitrite,Urine Negative (Negative); Protein,Urine Trace (Negative); Specific Gravity,Urine 1.014 (1.001-1.035); Squamous Epithelial Cell,Urine 1 /hpf (0-4); Urobilinogen,Urine <2.0 mg/dL (<2.0); WBC,Urine 10 /hpf (0-5)
[2019-08-11 11:53] LABS: Amphetamine Screen,Urine Not Detected (NotDetected); Barbiturate Screen,Urine Not Detected (NotDetected); Benzodiazepines Screen,Urine Detected (NotDetected); Cocaine Screen,Urine Not Detected (NotDetected); Methadone Screen, Urine Not Detected (NotDetected); Opiate Screen,Urine Not Detected (NotDetected); Oxycodone Screen, Urine Not Detected (NotDetected); Phencyclidine Screen,Urine Not Detected (NotDetected); Tricyclic Antidepressant,Urine Not Detected (NotDetected); Urn Cannabinoid Scrn Not Detected (NotDetected)
[2019-08-11] MEDS ORDERED: cefTRIAXone IN SWFI 1,000 MG/10 ML SYRINGE IVP STA (12:28)
[2019-08-11] MEDS: SODIUM CHLORIDE 0.9% 1,000 ML IV SCH (15:15)
[2019-08-11] MEDS ORDERED: LORazepam 2 MG/ML INJ IV PRN (15:54)
[2019-08-11] MEDS ORDERED: DOCUSATE 100 MG CAP PO PRN (15:54)
[2019-08-11] MEDS ORDERED: NALOXONE 0.4 MG/ML 1 ML VIAL IV PRN (15:54)
[2019-08-11] MEDS ORDERED: ALBUTEROL NEBULIZED 2.5 MG/3 ML INHALATION PRN (16:00)
[2019-08-11] MEDS ORDERED: ACETAMINOPHEN IV (For NPO) 1,000 MG in EMPTY BAG 1 BAG IVPB STA (16:03)
--- NOTE | 2019-08-11 16:03 | P.HPIM ---
History of Present Illness H&P Date: 08/11/19 Chief Complaint: altered mentation Patient is a 79-year-old female with a past medical history of COPD, Parkinson's disease, A. fib on anticoagulation with Eliquis, prior TIA, and acute on chronic back pain who presented to the emergency department for altered mentation and fixation on numbers. In the ER she underwent an extensive evaluation. Her initial vital signs were within normal limits. Initial laboratory analysis was unremarkable, urinalysis negative, urine drug screen positive for benzodiazepines with patient having a history of taking Valium. Chest x-ray showed possible right basilar opacity representing atelectasis or early infiltrate, CT head showed bilateral frontal lobe atrophy with chronic small vessel ischemic changes. In the ER she was given a dose of Rocephin with concerns for urinary tract infection and one dose of DuoNeb. Arrangements are made for observation for her altered mentation. Patient seen and examined at bedside with her daughter power of civil attorney present. They report that yesterday afternoon around 2 PM she started being more confused, inappropriately answering questions with numbers but at other times appropriately answering questions. She seemed to change How appropriate she was answering questions within the moment, this did not wax and wane over periods of hours. She is not having any other hallucinations. Patient intermittently helps with history gathering and daughter fills in the rest of the information. They deny any recent cough, cold, fever, or flu. No unusual diarrhea or constipation. She has been suffering for back ache for approximately the last 1 month. She follows with Dr. Martinez who increased her Valium and baclofen about a month ago. She did have a urinary tract infection approximately 2 weeks ago and completed antibiotic therapy for that. She's been having worsening left hip pain with radiation across the back for which she is supposed to be obtaining an outpatient computed tomography scan. She has not had any relief from her low back pain. He has been complaining of worsening pain. Apparently she was quite anxious and fixated on numbers yesterday. She does have a history of mental health disorder requiring hospitalization in the past but this has been well-controlled her daughter works in mental health. Daughter states that she is very accurate with her medications and she doubts having taken extra baclofen her Valium to help with the pain. Review of Systems Pertinent positives and negatives as discussed in HPI, a complete review of systems was performed and all other systems are negative. 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 History of Any Multi-Drug Resistant Organisms: None Reported Past Surgical History: Bladder Surgery, Bowel Resection, Hysterectomy, Pacemaker Additional Past Surgical History / Comment(s): 08/2012 pacemaker, bladder tumor resection, splenectomy d/t injury, surgical resection of colon tumor Past Anesthesia/Blood Transfusion Reactions: No Reported Reaction Type of Cardiac Device: Permanent Pacemaker Device Placement Date:: Unknown Past Psychological History: Anxiety Smoking Status: Former smoker Past Alcohol Use History: None Reported Past Drug Use History: None Reported Additional History: Lives with her daughter, has been using a walker for the last 1 month. - Past Family History Daughter(s) Family Medical History: No Reported History Father History Unknown: Yes Family Medical History: Unable to Obtain Mother History Unknown: Yes Family Medical History: No Reported History Additional Family Medical History / Comment(s): Mother was healthy and lived to be 96yrs. Medications and Allergies Home Medications Medication Instructions Recorded Confirmed Type RX: Cholecalciferol [Vitamin D3 5,000 unit PO DAILY 07/11/16 08/11/19 History (25 Mcg = 1000 Iu)] RX: Furosemide [Lasix] 20 mg PO DAILY 07/11/16 08/11/19 History RX: Montelukast [Singulair] 10 mg PO DAILY 07/11/16 08/11/19 History RX: Apixaban [Eliquis] 2.5 mg PO BID 05/11/19 08/11/19 History RX: Carbidopa-Levodopa ER 50-200Mg 1 tab PO BID@0700,1200 05/11/19 08/11/19 History [Sinemet CR 50-200 mg] RX: Fluticasone/Salmeterol 1 puff INHALATION RT-BID 05/11/19 08/11/19 History [Fluticasone-Salmeterol 232-14] RX: Multivitamin [Multivitamins 1 tab PO DAILY 05/11/19 08/11/19 History Adult Gummies] RX: Sotalol [Betapace] 120 mg PO BID 05/11/19 08/11/19 History Vitamin C Time Release 500mg 500 mg PO DAILY 05/11/19 08/11/19 History RX: Albuterol Nebulized [Ventolin 2.5 mg INHALATION RT-QID PRN #30 05/13/19 08/11/19 Rx Nebulized] nebu RX: Diltiazem HCl [Diltiazem 24Hr 180 mg PO DAILY 06/05/19 08/11/19 History ER] Baclofen [Lioresal] 10 mg PO TID 08/11/19 08/11/19 History Diazepam [Valium] 5 mg PO BID 08/11/19 08/11/19 History Tiotropium [place] [Spiriva 2 puff INHALATION RT-DAILY 08/11/19 08/11/19 History Respimat] Vit C/E/Zn/Coppr/Lutein/Zeaxan 1 cap PO BID 08/11/19 08/11/19 History [Preservision Areds 2 Softgel] Allergies Allergy/AdvReac Type Severity Reaction Status Date / Time adhesive tape Allergy Rash/Hives Verified 08/11/19 14:00 latex Allergy Rash/Hives Verified 08/11/19 14:00 venom-honey bee Allergy Rash/Hives Verified 08/11/19 14:00 Physical Exam Osteopathic Statement: *. No significant issues noted on an osteopathic structural exam other than those noted in the History and Physical/Consult. Vitals: Vital Signs Temp Pulse Resp BP Pulse Ox 08/11/19 15:05 89 19 147/83 97 08/11/19 15:00 89 19 147/83 08/11/19 14:30 84 23 140/79 90 L 08/11/19 14:00 84 24 146/81 89 L 08/11/19 13:30 87 20 144/81 90 L 08/11/19 13:00 84 18 150/82 90 L 08/11/19 12:30 80 21 141/78 90 L 08/11/19 12:11 85 17 147/79 93 L 08/11/19 12:00 85 17 147/79 93 L 08/11/19 11:48 82 08/11/19 11:37 84 08/11/19 11:30 85 18 151/86 94 L 08/11/19 11:06 86 18 151/86 92 L 08/11/19 11:00 86 21 154/92 92 L 08/11/19 10:30 148/81 94 L 08/11/19 10:00 148/81 92 L 08/11/19 09:52 148/81 08/11/19 09:50 81 18 148/81 93 L 08/11/19 09:25 97.9 F 81 18 134/85 94 L Intake and Output 08/11/19 08/11/19 08/11/19 06:59 14:59 22:59 Other: Weight 74.843 kg General: non toxic, no distress, appears at stated age, normal weight Derm: no unusual rashes/lesions no unusual ecchymoses, warm, dry Head: atraumatic, normocephalic, symmetric Eyes: EOMI, no lid lag, anicteric sclera, + anasarcoria with left pupil larger but both reactive to light ENT: Nose and ears atraumatic, + thrush, no pharyngeal erythema Neck: No thyromegaly, no cervical lymphadenopathy, trachea midline, supple Mouth: no lip lesion, mucus membranes moist Cardiovascular: S1S2 reg, no murmur, positive posterior tibial pulse bilateral, 1+ edema left foot and ankle (chronic per patient and daughter), capillary refill less than 2 seconds Lungs: + wheeze bilateral , no accessory muscle use Abdominal: soft, nontender to palpation, no guarding, no appreciable organomegaly, normal bowel sounds Ext: no gross muscle atrophy, muscle strength 5 out of 5 in right upper extremity 3-4/5 left upper extremity, unable to lift right leg off bed due to pain, unable to lift left leg off bed with difficulty following commands, , no contractures, Neuro: CN II-XI grossly intact, light touch intact all 4 extremities, finger to nose poor bilateral, Psych: lethargic, oriented to place and situation, flat affect Results CBC & Chem 7: 08/11/19 09:30 08/11/19 09:30 Labs: Abnormal Lab Results - Last 24 Hours (Table) 08/11/19 08/11/19 08/11/19 Range/Units 09:30 09:30 11:05 Neutrophils # 8.0 H (1.3-7.7) k/uL Glucose 105 H (74-99) mg/dL Alkaline Phosphatase 137 H (38-126) U/L Urine Protein Trace H (Negative) Urine Ketones 1+ H (Negative) Ur Leukocyte Esterase Small H (Negative) Urine WBC 10 H (0-5) /hpf Urine Mucus Occasional H (None) /hpf U Benzodiazepines Scrn Detected H (NotDetected) Chest x-ray: report reviewed, image reviewed (RLL infiltrate) CT Scan - head: report reviewed Thrombosis Risk Factor Assmnt - DVT/VTE Prophylaxis DVT/VTE Prophylaxis: Mechanical Prophylaxis ordered Assessment and Plan Assessment: delirium -Probable pneumonia on chest x-ray. Will start Zithromax and Rocephin. Repeat chest x-ray in a.m. -Unable to have MRI brain secondary to permanent pacemaker implantation. We'll repeat head CT without contrast in a.m. to rule out stroke - Consult PT/OT/speech therapy - The patient is more awake and lower extremity weakness resolves will not need echocardiogram however is still appears unchanged Barrell will need echo and carotid studies -Check TSH, a.m. cortisol level -Could also be secondary to uncontrolled pain give 1 dose of IV acetaminophen, will hold Eliquis encased LP as needed, hold baclofen and Valium -Neuro checks -Check EEG Probable left lower extremity weakness with acute back pain - CT L-spine with contrast to be completed after Head CT without contrast - IV acetominopehn X1 then oral - PT/OT evaluation -Baclofen and Valium on hold Atrial fibrillation with controlled ventricular response -Telemetry, sotalol, diltiazem -Eliquis on hold secondary possible need for LP COPD without exacerbation with chornic hypoxic respiratory failure -Continue with albuterol, Singulair, and DuoNeb treatment Parkinson's disease -Continue with carbidopa levodopa Anxiety - hold valium - ativan only if extremely needed The patient is placed in observation with an anticipated less than 2 midnight stay for evaluation of delirium. Surrogate decision-maker: Daughter, KRISTOFER, Power of civil attorney CODE STATUS: DNR DVT prophylaxis: SCDs Anticipated discharge date: 1-2 days, may need transfer for neuro evaluation Anticipated discharge place: home vs another acute care hospital
[2019-08-11] MEDS: ALBUTEROL NEBULIZED 2.5 MG/3 ML INHALATION SCH ×2 (16:07→20:03)
[2019-08-11] MEDS: AZITHROMYCIN 500 MG in SODIUM CHLORIDE 0.9% 250 ML IVPB SCH (19:42)
[2019-08-11] MEDS: SYMBICORT 160-4.5 MCG INHALER INHALATION SCH (20:04)
[2019-08-12] MEDS: MELATONIN 3 MG TABLET PO PRN (00:04)
[2019-08-12] MEDS: ACETAMINOPHEN TAB 325 MG TAB PO PRN ×2 (00:05→09:41)
[2019-08-12] MEDS: VIT A,C & E-LUTEIN-MINERALS 1 EACH TAB PO SCH ×2 (00:11→09:42)
[2019-08-12] MEDS: SOTALOL 120 MG TAB PO SCH ×2 (00:11→09:42)
[2019-08-12] MEDS ORDERED: IPRATROPIUM 0.5 MG/2.5 ML NEBU INHALATION SCH (08:00)
[2019-08-12] MEDS: SODIUM CHLORIDE 0.9% 1,000 ML IV SCH ×2 (08:06→15:42)
[2019-08-12] MEDS: AZITHROMYCIN 500 MG in SODIUM CHLORIDE 0.9% 250 ML IVPB SCH (08:06)
[2019-08-12 08:20] LABS: HCT 37.2 % (34.0-46.0); HGB 11.7 gm/dL (11.4-16.0); MCH 30.4 pg (25.0-35.0); MCHC 31.5 g/dL (31.0-37.0); MCV 96.4 fL (80.0-100.0); Mean Platelet Volume 8.6; Platelet Count 223 k/uL (150-450); RBC 3.86 m/uL (3.80-5.40); RDW 14.2 % (11.5-15.5); WBC 10.1 k/uL (3.8-10.6)
[2019-08-12 08:23] LABS: African American GFR (CKD) >90 (>60 ml/min/1.73 sqM); Anion Gap 6 mmol/L; Blood Urea Nitrogen 10 mg/dL (7-17); Calcium 9.2 mg/dL (8.4-10.2); Carbon Dioxide 24 mmol/L (22-30); Chloride 108 mmol/L (98-107); Glucose 90 mg/dL (74-99); Magnesium 1.9 mg/dL (1.6-2.3); Non-African American GFR(CKD) >90 (>60 ml/min/1.73 sqM); Potassium 3.8 mmol/L (3.5-5.1); Sodium 138 mmol/L (137-145)
--- NOTE | 2019-08-12 08:56 | XR ---
EXAMINATION TYPE: XR chest 1V portable DATE OF EXAM: 08/12/2019 COMPARISON: 08/11/2019 INDICATION: Pneumonia TECHNIQUE: Frontal and lateral views of the chest are obtained. FINDINGS: The heart size is normal. The pulmonary vasculature is normal. There is a mild right lower lobe infiltrate. Findings can be compatible with pneumonia in the proper clinical setting. Nonspecific infiltrate is along the left base likely subsegmental atelectasis. This area is improved from comparison. IMPRESSION: 1. Right lower lobe infiltrate developing. Findings can be compatible with pneumonia in the proper cl inical setting. 2. Improving left basilar infiltrate. Resolving atelectasis is favored at this location.
[2019-08-12] MEDS: SYMBICORT 160-4.5 MCG INHALER INHALATION SCH (08:58)
[2019-08-12] MEDS: ALBUTEROL NEBULIZED 2.5 MG/3 ML INHALATION SCH (08:58)
--- NOTE | 2019-08-12 09:31 | CT ---
EXAMINATION TYPE: CT brain wo con DATE OF EXAM: 08/12/2019 COMPARISON: 08/11/2019 INDICATION: AMS DLP: 1086.4 mGycm, Automated exposure control for dose reduction was used. CONTRAST: None CT of the brain is performed utilizing 3 mm thick sections through the posterior fossa and 3 mm thick sections through the remaining calvarium. Study is performed within 24 hours of arrival to the hosp ital. No abnormal hyperdensity is present to suggest an acute intracranial hemorrhage. No mass lesion is evident. No acute infarcts are evident. There is a hypodensity within the left basal ganglion may be a lacunar infarct of indeterminate age. This could be chronic. Mild Periventricular white matter hypodensity i s present. Ventricles and sulci are minimally prominent for the patient age. Paranasal sinuses and mastoid air cells within the [id number] are clear. IMPRESSIONS: 1. Age-related atrophy with chronic appearing periventricular white matter ischemic changes
[2019-08-12] MEDS: MULTIVITAMINS, THERA 1 EACH TAB PO SCH (09:42)
[2019-08-12] MEDS: FUROSEMIDE 20 MG TAB PO SCH (09:42)
[2019-08-12] MEDS: CHOLECALCIFEROL 1,000 UNIT TAB PO SCH (09:43)
[2019-08-12] MEDS: DILTIAZEM CD 180 MG CAP.ER.24H PO SCH (09:43)
[2019-08-12] MEDS: CARBIDOPA-LEVODOPA ER 50-200MG 1 EACH TABLET.ER PO SCH ×2 (09:43→11:38)
[2019-08-12] MEDS: MONTELUKAST 10 MG TAB PO SCH (09:43)
--- NOTE | 2019-08-12 10:48 | CT ---
EXAMINATION TYPE: CT lumbar spine w con DATE OF EXAM: 08/12/2019 COMPARISON: HISTORY: back pain, L LE weakness CT DLP: 935.1 mGycm CONTRAST: CT scan of the lumbar is performed with IV Contrast, patient injected with 100 mL of Isovue 300. TECHNIQUE: CT of the lumbar spine is performed on a spiral scan at 3 mm thick sections. Reconstructed images are performed in the coronal and sagittal planes. FINDINGS: There are compression deformities of T12 and L1. Minimal superior posterior wall displaceme nt causing mild anterior thecal sac flattening is present at T12. No stenosis is present. No signific ant posterior wall displacement is evident at L1. There is approximately 30% loss of anterior vertebr al body height T12 and approximately 20% mid vertebral body height loss at L1. T12-L1: No focal disc herniation or significant disc bulge is evident. No spinal canal stenosis or neural foraminal stenosis is present. L1-L2: No focal disc herniation or significant disc bulge is evident. No spinal canal stenosis or n eural foraminal stenosis is present L2-L3: Mild disc bulge is present with anterior thecal sac flattening. No AP spinal canal stenosis or neural foraminal stenosis is present. L3-L4: Disc space narrowing posteriorly is present. Broad-based disc bulge has mild to moderate anter ior thecal sac compression. No AP spinal canal stenosis is present. Mild left and moderate right fora antoni narrowing is present. Correlate with right radicular symptoms. L4-L5: Broad-based disc bulge has anterior thecal sac contact. Facet hypertrophy and posterior latera l thecal sac compression from ligamentum flavum laxity is present. There is mild left and moderate ri ght foraminal narrowing. L5-S1: No focal disc herniation or significant disc bulge is evident. No spinal canal stenosis or n eural foraminal stenosis is present. Spondylolysis of L5 is evident. Vertebral alignment appears normal. IMPRESSION: Multilevel disc bulging appears greatest at L3-4. 2. Disc bulging extends into the foramen at L3-4 L4-5 causing mild to moderate foraminal narrowing di scussed above. 3. Compression deformities T12-L1 discussed above. 4. Spondylolysis of L5
[2019-08-12] MEDS: ACETAMINOPHEN TAB 325 MG TAB PO SCH ×3 (11:28→22:48)
[2019-08-12] MEDS: methylPREDNISolone SOD SUCCI 125 MG/2 ML VIAL IV SCH ×2 (11:38→14:53)
[2019-08-12] MEDS: BACLOFEN 10 MG TAB PO SCH ×2 (11:38→14:54)
[2019-08-12 11:39] LABS: Glucose,Whole Blood 97 mg/dL (75-99)
[2019-08-12] MEDS: INSULIN ASPART (NovoLOG) 100 UNIT/ML VIAL SQ SCH ×2 (11:40→17:56)
[2019-08-12] MEDS: IPRATROPIUM-ALBUTEROL 3 ML NEB INHALATION SCH ×3 (13:14→20:15)
--- NOTE | 2019-08-12 16:49 | P.PN ---
Subjective Progress Note Date: 08/12/19 (delayed charting seen at 11am) Principal diagnosis: altered mentation Patient is a 79-year-old female with a past medical history of COPD, Parkinson's disease, A. fib on anticoagulation with Eliquis, prior TIA, and acute on chronic back pain who presented to the emergency department for altered mentation and fixation on numbers. In the ER she underwent an extensive evaluation. Her initial vital signs were within normal limits. Initial laboratory analysis was unremarkable, urinalysis negative, urine drug screen positive for benzodiazepines with patient having a history of taking Valium. Chest x-ray showed possible right basilar opacity representing atelectasis or early infiltrate, CT head showed bilateral frontal lobe atrophy with chronic small vessel ischemic changes. In the ER she was given a dose of Rocephin with concerns for urinary tract infection and one dose of DuoNeb. Arrangements are made for observation for her altered mentation. UA reviewed and not consistent with UTI. However it did appear that she likely had early pneumonia that she w as having some wheezing which patient states as per baseline. She was subsequently started on Rocephin and Zithromax. She was having difficulty following commands. It was difficult to ascertain if she was having some focal left-sided weakness, unable to have an MRI secondary to pacemaker. She un derwent a repeat head CT 24 hours after presentation which was unchanged. Repeat chest x-ray showed developing right lower lobe infiltrate compatible with pneumonia. CT lumbar spine showed multilevel disc bulging gratis at L3/4 with some mild to moderate foraminal narrowing and compression deformities of T8 12 through L1 with spondylolysis of L5. Her mentation improved with holding her baclofen and valium. Patient seen and examined at bedside. Much more awake and alert today. Complaining of some shortness of breath and coughing. No nausea, vomiting, or chest pain. Easily able to follow commands. Continues to have some back pain. It was difficult to tell if IV Tylenol helps yesterday she was on a hard stretcher. Objective - Vital Signs Vital signs: Vital Signs Temp 97.0 F L 08/12/19 14:38 Pulse 62 08/12/19 14:59 Resp 20 08/12/19 15:23 BP 94/60 08/12/19 14:38 Pulse Ox 92 L 08/12/19 14:38 Intake & Output 0108/12/19 08/12/19 18:59 06:59 18:59 Output Total 250 Balance -250 Weight 74.843 kg 74.843 kg Output: Urine 250 Other: Voiding Method Bedpan # Voids 1 - Exam General: non toxic, mild distress, appears at stated age Derm: warm, dry Head: atraumatic, normocephalic, symmetric Eyes: EOMI, no lid lag, anicteric sclera Mouth: no lip lesion, mucus membranes moist Cardiovascular: S1S2 reg, no murmur, positive posterior tibial pulse bilateral, Lungs: + rhonchi and wheeze bilateral, no rales , + accessory muscle use Abdominal: soft, nontender to palpation, no guarding, no appreciable organomegaly Ext: no gross muscle atrophy, no edema, no contractures Neuro: Anasacoria with larger left pupil, muscle strength 4 out of 5 in bilateral lower extremities and equal, light touch intact bilateral lower extremities upper extremities, finger to nose within normal limits, muscle strength in bilateral upper extremity is 4-5 out of 5 Psych: Alert, oriented, flat affect - Labs CBC & Chem 7: 08/12/19 07:48 08/12/19 07:48 Labs: Abnormal Lab Results - Last 24 Hours (Table) 08/12/19 Range/Units 07:48 Chloride 108 H (98-107) mmol/L Creatinine 0.51 L (0.52-1.04) mg/dL Assessment and Plan Assessment: Acute exacerbation of COPD with right-sided pneumonia, possible gram-negative in combination with chronic hypoxic respiratory failure -Continue with Zithromax and Rocephin -Add budesonide and for Medrol to DuoNeb's and when necessary albuterol -Start steroids -Pulmonary hygiene -Follow chest x-ray until clear -Consult pulmonary Toxic metabolic encephalopathy -Likely secondary to above -Continue off of Valium, restart baclofen secondary to back pain -Monitor closely -Repeat head CT unremarkable -TSH and cortisol levels normal. -Continue with Tylenol, avoid opiates Subacute back pain worsening over the last 4 weeks -CT lumbar spine with multilevel disc bulging -Consult Dr. Proctor on -Resume baclofen, continue to hold Valium -Tylenol as needed for pain secondary to history of intolerance of opiates and being on Eliquis Atrial fibrillation with controlled ventricular response -Telemetry, sotalol, diltiazem -Eliquis Parkinson's disease -Continue with carbidopa levodopa Anxiety - hold valium - ativan only if extremely needed DVT prophylaxis: jesus Anticipated discharge date: 2-[address]: home Discussed with: Patient, daughter, son
[2019-08-12 17:12] LABS: Glucose,Whole Blood 144 mg/dL (75-99)
[2019-08-12] MEDS: BUDESONIDE 1 MG/2 ML NEBU INHALATION SCH (20:15)
[2019-08-12] MEDS: FORMOTEROL FUMARATE 20 MCG/2 ML NEBU INHALATION SCH (20:15)
[2019-08-12 21:08] LABS: Glucose,Whole Blood 143 mg/dL (75-99)
[2019-08-12] MEDS: APIXABAN 2.5 MG TABLET PO SCH (22:48)
[2019-08-13] MEDS: VIT A,C & E-LUTEIN-MINERALS 1 EACH TAB PO SCH ×3 (00:13→21:17)
[2019-08-13] MEDS: methylPREDNISolone SOD SUCCI 125 MG/2 ML VIAL IV SCH ×2 (00:13→08:18)
[2019-08-13] MEDS: SOTALOL 120 MG TAB PO SCH ×3 (00:13→21:17)
[2019-08-13] MEDS: BACLOFEN 10 MG TAB PO SCH ×4 (00:13→21:18)
[2019-08-13] MEDS: MELATONIN 3 MG TABLET PO PRN (00:16)
[2019-08-13] MEDS: INSULIN ASPART (NovoLOG) 100 UNIT/ML VIAL SQ SCH ×5 (00:21→21:17)
[2019-08-13 01:58] LABS: Glucose,Whole Blood 135 mg/dL (75-99)
[2019-08-13] MEDS: ACETAMINOPHEN TAB 325 MG TAB PO SCH ×3 (06:21→17:37)
[2019-08-13 07:18] LABS: Glucose,Whole Blood 136 mg/dL (75-99)
[2019-08-13 08:01] LABS: HCT 35.7 % (34.0-46.0); HGB 11.5 gm/dL (11.4-16.0); MCH 30.9 pg (25.0-35.0); MCHC 32.3 g/dL (31.0-37.0); MCV 95.9 fL (80.0-100.0); Mean Platelet Volume 9.2; Platelet Count 229 k/uL (150-450); RBC 3.73 m/uL (3.80-5.40); RDW 13.9 % (11.5-15.5); WBC 7.6 k/uL (3.8-10.6)
--- NOTE | 2019-08-13 08:14 | XR ---
EXAMINATION TYPE: XR chest 1V portable DATE OF EXAM: 08/13/2019 Comparison: 08/12/2019 Clinical History: 79-year-old female pneumonia Findings: Left anterior chest wall pacemaker generator with right atrial and right ventricular leads. Heart rem ains borderline enlarged. Rightward patient rotation ultrasound normal cardiac and mediastinal contou rs. Anesthetic arch calcifications. Patchy peripheral right mid and lower lung densities and patchy l eft basilar opacities persist. Impression: Continued patchy opacities peripheral right mid and lower lung and left base.
[2019-08-13] MEDS: AZITHROMYCIN 500 MG in SODIUM CHLORIDE 0.9% 250 ML IVPB SCH (08:17)
[2019-08-13] MEDS: CHOLECALCIFEROL 1,000 UNIT TAB PO SCH (08:19)
[2019-08-13] MEDS: CARBIDOPA-LEVODOPA ER 50-200MG 1 EACH TABLET.ER PO SCH ×2 (08:20→11:56)
[2019-08-13] MEDS: APIXABAN 2.5 MG TABLET PO SCH ×2 (08:20→21:18)
[2019-08-13] MEDS: DILTIAZEM CD 180 MG CAP.ER.24H PO SCH (08:20)
[2019-08-13] MEDS: FUROSEMIDE 20 MG TAB PO SCH (08:20)
[2019-08-13] MEDS: MULTIVITAMINS, THERA 1 EACH TAB PO SCH (08:20)
[2019-08-13] MEDS: MONTELUKAST 10 MG TAB PO SCH (08:20)
[2019-08-13 08:23] LABS: African American GFR (CKD) >90 (>60 ml/min/1.73 sqM); Anion Gap 8 mmol/L; Blood Urea Nitrogen 13 mg/dL (7-17); Calcium 9.5 mg/dL (8.4-10.2); Carbon Dioxide 24 mmol/L (22-30); Chloride 106 mmol/L (98-107); Glucose 146 mg/dL (74-99); Non-African American GFR(CKD) >90 (>60 ml/min/1.73 sqM); Phosphorus 4.4 mg/dL (2.5-4.5); Potassium 4.2 mmol/L (3.5-5.1); Sodium 138 mmol/L (137-145)
[2019-08-13] MEDS: IPRATROPIUM-ALBUTEROL 3 ML NEB INHALATION SCH ×4 (09:02→19:34)
[2019-08-13] MEDS: FORMOTEROL FUMARATE 20 MCG/2 ML NEBU INHALATION SCH ×2 (09:02→19:34)
[2019-08-13] MEDS: BUDESONIDE 1 MG/2 ML NEBU INHALATION SCH ×2 (09:02→19:34)
--- NOTE | 2019-08-13 09:18 | P.PN ---
Subjective Progress Note Date: 08/13/19 Principal diagnosis: altered mentation Patient is a 79-year-old female with a past medical history of COPD, Parkinson's disease, A. fib on anticoagulation with Eliquis, prior TIA, and acute on chronic back pain who presented to the emergency department for altered mentation and fixation on numbers. In the ER she underwent an extensive evaluation. Her initial vital signs were within normal limits. Initial laboratory analysis was unremarkable, urinalysis negative, urine drug screen positive for benzodiazepines with patient having a history of taking Valium. Chest x-ray showed possible right basilar opacity representing atelectasis or early infiltrate, CT head showed bilateral frontal lobe atrophy with chronic small vessel ischemic changes. In the ER she was given a dose of Rocephin with concerns for urinary tract infection and one dose of DuoNeb. Arrangements are made for observation for her altered mentation. UA reviewed and not consistent with UTI. However it did appear that she likely had early pneumonia that she was having some wheezing which patient stated was her baseline. She was subsequently started on Rocephin and Zithromax. She was having difficulty following commands. It was difficult to ascertain if she was having some focal left-sided weakness, unable to have an MRI secondary to pacemaker. It was felt that she might have be having some polypharmacy and her baclofen and valium were stopped. She underwent a repeat head CT 24 hours after presentation which was unchanged. Repeat chest x-ray showed developing right lower lobe infiltrate compatible with pneumonia. CT lumbar spine showed multilevel disc bulging gratis at L3/4 with some mild to moderate foraminal narrowing and compression deformities of T8 12 through L1 with spondylolysis of L5. Her mentation improved with holding her baclofen and valium. her breathing worsened slightly she was started on steroids and pulmonary was consulted. Patient seen and examined at bedside. Some shortness of breath and wheezing. No nausea or vomiting. No diarrhea or constipation. No chest pain. Objective - Vital Signs Vital signs: Vital Signs Temp 97.6 F 08/13/19 05:00 Pulse 76 08/13/19 09:03 Resp 20 08/13/19 05:00 BP 114/72 08/13/19 05:00 Pulse Ox 97 08/13/19 09:03 Intake & Output 08/12/19 08/13/19 08/13/19 18:59 06:59 18:59 Intake Total 250 400 Balance 250 400 Weight 74.843 kg Intake: Oral 250 400 Other: Voiding Method Bedpan Bedpan # Voids 1 2 - Exam General: non toxic, no distress, appears at stated age Derm: warm, dry Head: atraumatic, normocephalic, symmetric Eyes: EOMI, no lid lag, anicteric sclera Mouth: no lip lesion, mucus membranes moist Cardiovascular: S1S2 reg, no murmur, positive posterior tibial pulse bilateral, Lungs: + wheeze left sided, no rales , no accessory muscle use Abdominal: soft, nontender to palpation, no guarding, no appreciable organomegaly Ext: no gross muscle atrophy, no edema, no contractures Neuro: no focal neuro deficits noted Psych: Alert, oriented, flat affect - Labs CBC & Chem 7: 08/13/19 07:15 08/13/19 07:15 Labs: Abnormal Lab Results - Last 24 Hours (Table) 08/12/19 08/12/19 08/13/19 Range/Units 17:10 21:04 01:46 RBC (3.80-5.40) m/uL Creatinine (0.52-1.04) mg/dL Glucose (74-99) mg/dL POC Glucose (mg/dL) 144 H 143 H 135 H (75-99) mg/dL 08/13/19 08/13/19 08/13/19 Range/Units 07:15 07:15 07:17 RBC 3.73 L (3.80-5.40) m/uL Creatinine 0.47 L (0.52-1.04) mg/dL Glucose 146 H (74-99) mg/dL POC Glucose (mg/dL) 136 H (75-99) mg/dL Assessment and Plan Assessment: Acute exacerbation of COPD with right-sided pneumonia, possible gram-negative in combination with chronic hypoxic respiratory failure -Continue with Zithromax and Rocephin -budesonide and formeterol, duonebs, when necessary albuterol -transition steroids to PO -Pulmonary hygiene -Follow chest x-ray until clear -Await pulm recs Toxic metabolic encephalopathy -Likely secondary to above -Continue off of Valium, baclofen restarted 08/12 secondary to back pain -Monitor closely -Repeat head CT unremarkable -TSH and cortisol levels normal. -Continue with Tylenol, avoid opiates Subacute back pain worsening over the last 4 weeks -CT lumbar spine with multilevel disc bulging - Await Dr. Enrique salas, appears ordered pain management consult - baclofen, continue to hold Valium -Tylenol as needed for pain secondary to history of intolerance of opiates and being on Eliquis Atrial fibrillation with controlled ventricular response -Telemetry, sotalol, diltiazem -Eliquis Parkinson's disease -Continue with carbidopa levodopa Anxiety - hold add back prn xanax DVT prophylaxis: eliquis Anticipated discharge date: 2-[address]: home Discussed with: Patient, daughter, son
[2019-08-13] MEDS ORDERED: ALPRAZolam 0.25 MG TAB PO PRN (09:19)
[2019-08-13] MEDS: predniSONE 20 MG TAB PO SCH (10:44)
[2019-08-13 11:31] LABS: Glucose,Whole Blood 203 mg/dL (75-99)
[2019-08-13] MEDS ORDERED: RX INFO: IV CONTRAST WAS GIVEN 1 EACH MISC MISCELLANE PRN (12:50)
--- NOTE | 2019-08-13 12:54 | P.CNPUL ---
History of Present Illness Consult date: 08/13/19 Reason for consult: dyspnea, COPD History of present illness: This is a pleasant 79-year-old female patient of a [place] descent known history of COPD he quit smoking around 3 years ago, oxygen dependent although she doesn't use her oxygen the consistent basis was maintained on a combination of Spiriva and a combination of fluticasone/salmeterol inhaler on outpatient basis. Her manager intelligence is of [facility] on [address] [place] [address]. The patient also has history of chronic atrial fibrillation and she was also given diagnosis of Parkinson's disease. Around 6 months ago she started having increased back pain. She was admitted also because of altered mentation as the patient was being fixated the numbers and she was repeating herself and somewhat confused. In the ED, her vitals are all stable. Her UA was negative. Her urine drug screen was positive for benzodiazepines as the patient was taking Valium on outpatient basis. Chest x-ray showed infiltration of the lung bases bilaterally although possibility of atelectasis cannot be completely excluded. CAT scan of the brain showed bilateral frontal lobe atrophy and chronic small vessel ischemic change. The patient was started on a combination of Rocephin and Zithromax. She was started on DuoNeb nebulized treatments around the clock. She was also placed on IV Solu-Medrol and currently she'll be switched to a prednisone burst taper starting with 60 mg by mouth daily. Mental status improved. She is back to her baseline. She is following commands and answering questions appropriately. The cultures are negative thus far and influenza screen is negative. She was further workup by a CAT scan of the lumbar spine that showed multilevel disc bulge worse at the level of L3-L4 in addition to mild to moderate forearm and narrowing and compression fracture of the T12-L1 spine. She has no specific complaints for now. Lower extremities remain weak. She reports her breathing is improving for now. No significant leukocytosis. No renal insufficiency. Electrodes are all within normal limits. A repeat chest x-ray was done today and it showed some ongoing patchy opacities in the lung bases peripherally mainly in the left lower lobes bilaterally. I think there is some interval improvement in comparing both chest x-rays from 08/11/2019 and 08/13/2019. Review of Systems Constitutional: Reports fatigue, Reports weakness Eyes: denies as per HPI, denies blurred vision, denies bulging eye, denies decreased vision, denies diplopia, denies discharge, denies dry eye, denies irritation, denies itching, denies pain, denies photophobia, denies loss of peripheral vision, denies loss of vision, denies tunnel vision/blind spots Ears: bilateral: decreased hearing, deny: ear discharge, earache, tinnitus Ears, nose, mouth and throat: Denies headache, Denies sore throat Breasts: absent: as per HPI, change in shape, gynecomastia, masses, nipple discharge, pain, skin changes, swelling Cardiovascular: Reports decreased exercise tolerance, Reports dyspnea on exertion Respiratory: Reports cough, Reports dyspnea, Reports wheezing Gastrointestinal: Reports as per HPI Genitourinary: Reports as per HPI Menstruation: Reports as per HPI Musculoskeletal: Reports low back pain Musculoskeletal: absent: ankle pain, ankle stiffness, ankle swelling Integumentary: Reports as per HPI Neurological: Reports confusion, Reports memory loss, Reports migraines, Reports weakness Psychiatric: Reports as per HPI Endocrine: Reports as per HPI Hematologic/Lymphatic: Reports as per HPI Past Medical History Past Medical History: Atrial Fibrillation, Cancer, COPD, CVA/TIA, Eye Disorder, Musculoskeletal Disorder, Neurologic Disorder Additional Past Medical History / Comment(s): Pt recently admitted to [facility] on 06/07/19 with exacerbation COPD/possible pneumonia/acute on chronic back pain with lower extremity weakness which safia states is not better. 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, L eye macular degeneration, L leg edema History of Any Multi-Drug Resistant Organisms: None Reported Past Surgical History: Bladder Surgery, Bowel Resection, Hysterectomy, Pacemaker Additional Past Surgical History / Comment(s): 08/2012 pacemaker, bladder tumor resection, splenectomy d/t injury, surgical resection of colon tumor Past Anesthesia/Blood Transfusion Reactions: No Reported Reaction Type of Cardiac Device: Permanent Pacemaker Device Placement Date:: Unknown Smoking Status: Former smoker - Past Family History Daughter(s) Family Medical History: No Reported History Father History Unknown: Yes Family Medical History: Unable to Obtain Mother History Unknown: Yes Family Medical History: No Reported History Additional Family Medical History / Comment(s): Mother was healthy and lived to be 96yrs. Medications and Allergies Home Medications Medication Instructions Recorded Confirmed Type Cholecalciferol [Vitamin D3 (25 5,000 unit PO DAILY 07/11/16 08/11/19 History Mcg = 1000 Iu)] Furosemide [Lasix] 20 mg PO DAILY 07/11/16 08/11/19 History Montelukast [Singulair] 10 mg PO DAILY 07/11/16 08/11/19 History Apixaban [Eliquis] 2.5 mg PO BID 05/11/19 08/11/19 History Carbidopa-Levodopa ER 50-200Mg 1 tab PO BID@0700,1200 05/11/19 08/11/19 History [Sinemet CR 50-200 mg] Fluticasone/Salmeterol 1 puff INHALATION RT-BID 05/11/19 08/11/19 History [Fluticasone-Salmeterol 232-14] Multivitamin [Multivitamins Adult 1 tab PO DAILY 05/11/19 08/11/19 History Gummies] Sotalol [Betapace] 120 mg PO BID 05/11/19 08/11/19 History Vitamin C Time Release 500mg 500 mg PO DAILY 05/11/19 08/11/19 History Albuterol Nebulized [Ventolin 2.5 mg INHALATION RT-QID PRN #30 05/13/19 08/11/19 Rx Nebulized] nebu Diltiazem HCl [Diltiazem 24Hr ER] 180 mg PO DAILY 06/05/19 08/11/19 History Baclofen [Lioresal] 10 mg PO TID 08/11/19 08/11/19 History Diazepam [Valium] 5 mg PO BID 08/11/19 08/11/19 History Tiotropium [place] [Spiriva 2 puff INHALATION RT-DAILY 08/11/19 08/11/19 History Respimat] Vit C/E/Zn/Coppr/Lutein/Zeaxan 1 cap PO BID 08/11/19 08/11/19 History [Preservision Areds 2 Softgel] Allergies Allergy/AdvReac Type Severity Reaction Status Date / Time adhesive tape Allergy Rash/Hives Verified 08/11/19 14:00 latex Allergy Rash/Hives Verified 08/11/19 14:00 venom-honey bee Allergy Rash/Hives Verified 08/11/19 14:00 Physical Exam Vitals: Vital Signs Temp Pulse Pulse Pulse Resp BP BP 08/13/19 09:28 77 08/13/19 09:16 73 08/13/19 09:03 76 08/13/19 08:00 20 08/13/19 05:00 97.6 F 68 20 114/72 08/12/19 22:00 97.7 F 74 20 108/67 08/12/19 20:40 66 08/12/19 20:32 66 08/12/19 20:16 64 08/12/19 15:23 20 08/12/19 14:59 62 08/12/19 14:38 97.0 F L 76 18 94/60 08/12/19 13:23 64 20 08/12/19 13:14 68 20 Pulse Ox 08/13/19 09:28 08/13/19 09:16 08/13/19 09:03 97 08/13/19 08:00 08/13/19 05:00 94 L 08/12/19 22:00 94 L 08/12/19 20:40 08/12/19 20:32 08/12/19 20:16 08/12/19 15:23 08/12/19 14:59 08/12/19 14:38 92 L 08/12/19 13:23 08/12/19 13:14 Intake and Output 08/12/19 08/13/19 08/13/19 22:59 06:59 14:59 Intake Total 550 100 Balance 550 100 Intake: Oral 550 100 Other: Voiding Method Bedpan Bedpan Bedpan # Voids 1 2 General: non toxic, no distress, appears at stated age, the patient is awake and alert and communicating and she doesn't have any altered mentation this point in time. She is alert and oriented 3. Examination of the skin revealed no evidence of significant rashes, suspicious appearing nevi or other concerning lesions. Head: Head exam was generally normal. There was no scleral icterus or corneal arcus. Mucous membranes were moist. Eyes: Neck was supple and without jugular venous distension, thyromegaly, or carotid bruits. Carotids were easily palpable bilaterally. There was no adenopathy. Mouth: no lip lesion, mucus membranes moist Cardiovascular: S1S2 reg, no murmur, positive posterior tibial pulse bilateral, Lungs: + wheeze left sided, no rales , no accessory muscle use Abdominal: soft, nontender to palpation, no guarding, no appreciable organomegaly Ext: no gross muscle atrophy, no edema, no contractures Neuro: no focal neuro deficits noted, no confusion, and altered mentation Psych: Alert, oriented, flat affect Results - Laboratory Findings CBC and BMP: 08/13/19 07:15 08/13/19 07:15 PT/INR, D-dimer PT 10.9 sec (9.0-12.0) 08/11/19 09:30 INR 1.0 (<1.2) 08/11/19 09:30 Abnormal lab findings: Abnormal Labs 08/11/19 08/11/19 08/11/19 09:30 09:30 11:05 RBC Neutrophils # 8.0 H Chloride Creatinine Glucose 105 H POC Glucose (mg/dL) Alkaline Phosphatase 137 H Urine Protein Trace H Urine Ketones 1+ H Ur Leukocyte Esterase Small H Urine WBC 10 H Urine Mucus Occasional H U Benzodiazepines Scrn Detected H 08/12/19 08/12/19 08/12/19 07:48 17:10 21:04 RBC Neutrophils # Chloride 108 H Creatinine 0.51 L Glucose POC Glucose (mg/dL) 144 H 143 H Alkaline Phosphatase Urine Protein Urine Ketones Ur Leukocyte Esterase Urine WBC Urine Mucus U Benzodiazepines Scrn 08/13/19 08/13/19 08/13/19 01:46 07:15 07:15 RBC 3.73 L Neutrophils # Chloride Creatinine 0.47 L Glucose 146 H POC Glucose (mg/dL) 135 H Alkaline Phosphatase Urine Protein Urine Ketones Ur Leukocyte Esterase Urine WBC Urine Mucus U Benzodiazepines Scrn 08/13/19 08/13/19 07:17 11:30 RBC Neutrophils # Chloride Creatinine Glucose POC Glucose (mg/dL) 136 H 203 H Alkaline Phosphatase Urine Protein Urine Ketones Ur Leukocyte Esterase Urine WBC Urine Mucus U Benzodiazepines Scrn - Diagnostic Findings Chest x-ray: image reviewed Assessment and Plan Plan: 1 acute COPD exacerbation with secondary shortness of breath and some limited infiltration of the lung bases bilaterally which have essentially remained persistent probably somewhat improved compared to the 08/11/2019. I am very much interested in obtaining a CAT scan of the chest to characterized these abnormalities especially with the patient's history of COPD and previous history of malignancies. 2 Altered mental status, recovered. This could've been metabolic encephalopathy related to underlying infection. CAT scan of the brain showed atrophy without any acute abnormalities. 3 chronic back pain with evidence of lumbar disc disease and compression fracture at the level of T12-L1 4 history of colon cancer 5 history of bladder cancer 6 Parkinson's disease 7 CVA/TIA, history of 8 chronic hypoxic respiratory failure related to COPD 9 macular degeneration 10 previous history of UTI treated with antibiotics 11 history of pacemaker insertion Plan I think that the patient had some metabolic encephalopathy probably an underlying pneumonia causing altered mentation. CAT scan of the brain was negative. She has responded to antibiotic treatment which include a combination of Rocephin and Zithromax. Pulmonary infiltrates remain persistent. The chest will be ordered with contrast. Management of back pain. Orthopedics surgery. Outpatient medications have been quite appropriate regarding his COPD as the patient has been taken a combination of Spiriva and Wixela in addition to oxygen and albuterol solution on insulin bases and this will be continued. She has been ordered to switch to prednisone burst taper. We'll continue to follow make further recommendations based on results of the CAT scan of the chest.
[2019-08-13 13:28] VITALS: BMI 26.6
[2019-08-13 14:16] VITALS: RESP 16
--- NOTE | 2019-08-13 16:13 | CT ---
EXAMINATION TYPE: CT chest w con DATE OF EXAM: 08/13/2019 COMPARISON: Radiographs same day and CT abdomen 05/16/2019 HISTORY: 79-year-old female Dyspnea, confusion, AMS, history of cancer TECHNIQUE: Contiguous axial scanning of the chest after the administration of 100 mL of Isovue 300. Coronal/sagittal reconstructions performed. CT DLP: 496mGycm. Automatic exposure control utilized for a dose reduction. FINDINGS: Left anterior chest wall pacemaker generator with right atrial and right ventricular leads. Heart normal size with trace pericardial fluid. Mild coronary artery calcifications are present. Scattered mild to moderate atherosclerotic calcification throughout the thoracic aorta with conventio nal arch vessel branching anatomy. No thoracic lymphadenopathy by CT size criteria. Moderate centrilobular emphysema in the upper lungs. Trace right pleural effusion. Prominent patchy posterior basilar right lower lobe opacity. More strandy opacities inferior lingula. Some pleural parenchymal scarring along the posterior left base. Omental fat-containing epigastric midline hernias are only partially visualized measuring up to 10.8 cm. Partially visualized heterogeneously enhancing lesion within the left liver lobe. Additional hypodens e lesions measuring up to 1.1 cm are unchanged from 05/16/2019. Soft tissue density positioned behind the right hepatic dome measuring 2.7 cm is unchanged as is additional soft tissue density posterior to the gastric fundus measuring 2.0 cm. Given nonvisualization of the spleen, traumatic splenules are suspected. Bones: Superior endplate fracture of T9 with 40% overall height loss is new from 05/16/2019. No signi ficant surrounding soft tissue swelling. IMPRESSION: 1. COPD with moderate emphysema. 2. Trace right pleural effusion with new patchy right greater than left bibasilar opacities. Combinat ion of atelectasis and pneumonia, particularly on the right is suggested. 3. Partially visualized ventral abdominal wall hernias as described in patient's 05/16/2029 CT. The h eterogeneously enhancing left liver lobe lesion is also partially visualized and further described on 05/16/2029 CT. 4. Suspect post traumatic splenules in the upper abdomen. 5. Age-indeterminate vertebral compression injury of T9 with 40% overall height loss though noted to be new compared to 05/16/2019. Correlate for any focal pain at this level.
[2019-08-13 17:09] LABS: Glucose,Whole Blood 111 mg/dL (75-99)
--- NOTE | 2019-08-13 17:17 | P.CNOR ---
History of Present Illness - [facility] Consult date: 08/13/19 Requesting physician: Tess Porras Consult reason: low back pain History of present illness: Patient is a very pleasant 79-year-old female who is seen and examined at bedside for further evaluation for ongoing chronic low back pain. Patient was having significant altered mentation and fixation of numbers at the time of admission. After some changing of her medications this has significantly improved. Patient is currently awake, alert, oriented 3. She states she has been experiencing ongoing left-sided low back pain for a significant period of time. She denies any recent injuries. She does admit to chronic compression fracture deformities in her thoracolumbar spine after sustaining a fall multiple years ago. She states her pain is well-controlled at rest. Her pain is most significant when first standing from a seated position. She states after straightening herself her back pain improves. She ambulates the assistance of a walker. She is known have Parkinson's disease and follows with her neurologist, Dr. Mcclain. She states she is also known to have an umbilical hernia. She was recently prescribed an abdominal binder to help with both her back pain and umbilical hernia. She feels this has provided some control of her symptoms. She also admits to other multiple medical diagnoses including COPD, Atrial fibrillation, and history of TIA. She would like to exhaust conservative treatment options. She does not feel she is surgical candidate. She states they were planning for surgical intervention for umbilical hernia that she is unable to obtain surgical clearance. She does admit to left lower extremity weakness and has difficulty lifting her left lower extremity off the bed. She also has some difficulty with dorsiflexion. She denies any right lower extremity radiculopathy. She is not experiencing any radiculopathy in the bilateral lower extremities. At this time she doesn't feel she needs further bracing. She has previously worked through injections with pain management but has not done so for years. She would be willing to do so while here in the hospital. Patient is on anticoagulation with Eliquis. Past Medical History Past Medical History: Atrial Fibrillation, Cancer, COPD, CVA/TIA, Eye Disorder, Musculoskeletal Disorder, Neurologic Disorder Additional Past Medical History / Comment(s): Pt recently admitted to [facility] on 06/07/19 with exacerbation COPD/possible pneumonia/acute on chronic back pain with lower extremity weakness which safia states is not better. 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, L eye macular degeneration, L leg edema History of Any Multi-Drug Resistant Organisms: None Reported Past Surgical History: Bladder Surgery, Bowel Resection, Hysterectomy, Pacemaker Additional Past Surgical History / Comment(s): 08/2012 pacemaker, bladder tumor resection, splenectomy d/t injury, surgical resection of colon tumor Past Anesthesia/Blood Transfusion Reactions: No Reported Reaction Type of Cardiac Device: Permanent Pacemaker Device Placement Date:: Unknown Smoking Status: Former smoker - Past Family History Daughter(s) Family Medical History: No Reported History Father History Unknown: Yes Family Medical History: Unable to Obtain Mother History Unknown: Yes Family Medical History: No Reported History Additional Family Medical History / Comment(s): Mother was healthy and lived to be 96yrs. Medications and Allergies Home Medications Medication Instructions Recorded Confirmed Type Cholecalciferol [Vitamin D3 (25 5,000 unit PO DAILY 07/11/16 08/11/19 History Mcg = 1000 Iu)] Furosemide [Lasix] 20 mg PO DAILY 07/11/16 08/11/19 History Montelukast [Singulair] 10 mg PO DAILY 07/11/16 08/11/19 History Apixaban [Eliquis] 2.5 mg PO BID 05/11/19 08/11/19 History Carbidopa-Levodopa ER 50-200Mg 1 tab PO BID@0700,1200 05/11/19 08/11/19 History [Sinemet CR 50-200 mg] Fluticasone/Salmeterol 1 puff INHALATION RT-BID 05/11/19 08/11/19 History [Fluticasone-Salmeterol 232-14] Multivitamin [Multivitamins Adult 1 tab PO DAILY 05/11/19 08/11/19 History Gummies] Sotalol [Betapace] 120 mg PO BID 05/11/19 08/11/19 History Vitamin C Time Release 500mg 500 mg PO DAILY 05/11/19 08/11/19 History Albuterol Nebulized [Ventolin 2.5 mg INHALATION RT-QID PRN #30 05/13/19 08/11/19 Rx Nebulized] nebu Diltiazem HCl [Diltiazem 24Hr ER] 180 mg PO DAILY 06/05/19 08/11/19 History Baclofen [Lioresal] 10 mg PO TID 08/11/19 08/11/19 History Diazepam [Valium] 5 mg PO BID 08/11/19 08/11/19 History Tiotropium [place] [Spiriva 2 puff INHALATION RT-DAILY 08/11/19 08/11/19 History Respimat] Vit C/E/Zn/Coppr/Lutein/Zeaxan 1 cap PO BID 08/11/19 08/11/19 History [Preservision Areds 2 Softgel] Allergies Allergy/AdvReac Type Severity Reaction Status Date / Time adhesive tape Allergy Rash/Hives Verified 08/11/19 14:00 latex Allergy Rash/Hives Verified 08/11/19 14:00 venom-honey bee Allergy Rash/Hives Verified 08/11/19 14:00 Physical Examination Physical exam: Patient is awake, alert, and oriented 3; patient answers questions appropriately and gives a good detailed history Vital signs stable Good chest excursion with deep inspiration and expiration Abdomen soft nontender; abdominal binder intact Examination of lumbar spine reveals skin is intact with no abrasions, lacerations, or bruises; no erythema, purulence or signs of infection Abdominal binder is moved for physical examination of the lumbar spine Dorsiflexion, plantarflexion, and extensor hallucis longus positive sustained on the right Patient has difficulty with lifting the left lower extremity off the bed Weakness with dorsiflexion and extensor hallucis longus on the left with strength at 3/5 No lower extremity hyperreflexia bilaterally No signs or symptoms of DVT; no calf pain No pain with internal and external rotation of the hips bilaterally Neurovascularly intact Results Pertinent studies: CT of the lumbar spine taken on 08/12/2019: Evidence of previous compression fracture deformities at T12 and L1 which most likely chronic given the patient's history; L5 bilateral spondylolysis; L3-4 general disc disease and broad-based disc bulging resulting in mild left and moderate neural foraminal narrowing; L4- 5 broad-based disc bulge and facet hypertrophy resulting in mild left and moderate neural foraminal narrowing - Labs Labs: Abnormal Lab Results - Last 24 Hours (Table) 08/12/19 08/12/19 08/13/19 Range/Units 17:10 21:04 01:46 RBC (3.80-5.40) m/uL Creatinine (0.52-1.04) mg/dL Glucose (74-99) mg/dL POC Glucose (mg/dL) 144 H 143 H 135 H (75-99) mg/dL 08/13/19 08/13/19 08/13/19 Range/Units 07:15 07:15 07:17 RBC 3.73 L (3.80-5.40) m/uL Creatinine 0.47 L (0.52-1.04) mg/dL Glucose 146 H (74-99) mg/dL POC Glucose (mg/dL) 136 H (75-99) mg/dL 08/13/19 08/13/19 Range/Units 11:30 17:06 RBC (3.80-5.40) m/uL Creatinine (0.52-1.04) mg/dL Glucose (74-99) mg/dL POC Glucose (mg/dL) 203 H 111 H (75-99) mg/dL H & H 08/11/19 08/12/19 08/13/19 Range/Units 09:30 07:48 07:15 Hgb 13.7 11.7 11.5 (11.4-16.0) gm/dL Hct 42.5 37.2 35.7 (34.0-46.0) % Coagulation 08/11/19 Range/Units 09:30 INR 1.0 (<1.2) Result Diagrams: 08/13/19 07:15 08/13/19 07:15 Assessment and Plan Assessment: Assessment: Chronic low back pain Chronic compression fracture deformity at T12 and L1 L5 bilateral spondylolysis L3-4 degenerative disc disease L4-5 facet hypertrophy Multilevel neuroforaminal narrowing Left lower extremity weakness Altered mental status and fixation on numbers, resolved Atrial fibrillation currently on Eliquis COPD Parkinson's disease (1) Chronic low back pain Current Visit: Yes Status: Acute Code(s): M54.5 - LOW BACK PAIN; G89.29 - OTHER CHRONIC PAIN SNOMED Code(s): 166972376 (2) T12 compression fracture Current Visit: Yes Status: Acute Code(s): S22.080A - WEDGE COMPRESSION FRACTURE OF T11-T12 VERTEBRA, INIT SNOMED Code(s): 224044868 (3) Compression fracture of L1 vertebra Current Visit: Yes Status: Acute Code(s): S32.010A - WEDGE COMPRESSION FRAC TURE OF FIRST LUMBAR VERTEBRA, INIT SNOMED Code(s): 360765169 (4) Spondylolysis of lumbar region Current Visit: Yes Status: Acute Code(s): M43.06 - SPONDYLOLYSIS, LUMBAR REGION SNOMED Code(s): 504350510 (5) Lumbar degenerative disc disease Current Visit: Yes Status: Acute Code(s): M51.36 - OTHER INTERVERTEBRAL DISC DEGENERATION, LUMBAR REGION SNOMED Code(s): 02245516 (6) Lumbar facet arthropathy Current Visit: Yes Status: Acute Code(s): M47.816 - SPONDYLOSIS W/O MYELOPATHY OR RADICULOPATHY, LUMBAR REGION SNOMED Code(s): 054853824 (7) Weakness of left lower extremity Current Visit: Yes Status: Acute Code(s): R29.898 - OTH SYMPTOMS AND SIGNS INVOLVING THE MUSCULOSKELETAL SYSTEM SNOMED Code(s): 643140504 (8) Atrial fibrillation Current Visit: Yes Status: Acute Code(s): I48.91 - UNSPECIFIED ATRIAL FIBRILLATION SNOMED Code(s): 59661333 (9) Parkinsons disease Current Visit: Yes Status: Acute Code(s): G20 - PARKINSON'S DISEASE SNOMED Code(s): 09025693 (10) Altered mental status Current Visit: Yes Status: Acute Code(s): R41.82 - ALTERED MENTAL STATUS, UNSPECIFIED SNOMED Code(s): 897057570 (11) COPD with acute exacerbation Current Visit: No Status: Acute Code(s): J44.1 - CHRONIC OBSTRUCTIVE PULMONA RY DISEASE W (ACUTE) EXACERBATION SNOMED Code(s): 785405735 Plan: Plan: 1. After reviewing of imaging, physical examination the patient, and further discussion with the patient, we will currently plan to continue conservative treatment at this time. Patient does have evidence of compression fracture deformity at T12 and L1. She is not experiencing any pain at the fracture sites. She states she is known have previously sustained fractures to her thoracolumbar spine years ago after a fall. She continues to experience ongoing left-sided low back pain. She does have some evidence of degenerative disc disease and facet arthropathy. She also has L5 bilateral spondylolysis. At this time we recommend conservative treatment options given her multiple medical comorbidities. Patient does not feel she would be able to obtain clearance for any surgical intervention as well. She would like to exhaust conservative treatment. We discussed she could benefit by working through treatment with pain management. We will plan for consultation with pain management. Patient was also discussed with Dr. Porras. Patient may have to plan for outpatient further evaluation with pain management due to her currently being on anticoagulation with Eliquis but we will still plan for her evaluation with pain management. At this time patient will be clear for discharge from an orthopedic spine standpoint. She may continue wearing the abdominal binder as prescribed for her low back pain and umbilical hernia. At this time we'll plan have her follow up on an as-needed basis. If she has exacerbation of her symptoms she may call the office to set up a follow-up point with Raul Guardado PA-C or Dr. Clif Nunez at [facility]. 2. Patient will continue be seen in exam by medicine Time with Patient: Greater than 30 (Including obtaining history, physical examination, reviewing of imaging, and dictation.)
[2019-08-13 20:59] LABS: Glucose,Whole Blood 206 mg/dL (75-99)
--- NOTE | 2019-08-13 21:58 | P.PAINCN ---
History of Present Illness - Reason for Consult Consult date: 08/13/19 - History of Present Illness This is 79 years old female, with chronic low back pain, she is admitted to [facility], and she is complaining of increased intensity of the low back pain over the last few weeks, patient diagnosed with compression fracture of the lumbar spine, at T 12 -L1, and currently she is complaining of severe localized pain in the low back area, the pain is constant and increases with any activity, is not radiated to the lower extremity, and she reported that the pain currently is controlled with the pain medication Tylenol, she reported that any movement exacerbates her pain, she is currently on anticoagulation and equities secondary to atrial fibrillation and she received her medication today, Past Medical History Past Medical History: Atrial Fibrillation, Cancer, COPD, CVA/TIA, Eye Disorder, Musculoskeletal Disorder, Neurologic Disorder Additional Past Medical History / Comment(s): Pt recently admitted to [facility] on 06/07/19 with exacerbation COPD/possible pneumonia/acute on chronic back pain with lower extremity weakness which safia states is not better. 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, L eye macular degeneration, L leg edema History of Any Multi-Drug Resistant Organisms: None Reported Past Surgical History: Bladder Surgery, Bowel Resection, Hysterectomy, Pacemaker Additional Past Surgical History / Comment(s): 08/2012 pacemaker, bladder tumor r esection, splenectomy d/t injury, surgical resection of colon tumor Past Anesthesia/Blood Transfusion Reactions: No Reported Reaction Type of Cardiac Device: Permanent Pacemaker Device Placement Date:: Unknown Smoking Status: Former smoker - Past Family History Daughter(s) Family Medical History: No Reported History Father History Unknown: Yes Family Medical History: Unable to Obtain Mother History Unknown: Yes Family Medical History: No Reported History Additional Family Medical History / Comment(s): Mother was healthy and lived to be 96yrs. Medications and Allergies Home Medications Medication Instructions Recorded Confirmed Type Cholecalciferol [Vitamin D3 (25 5,000 unit PO DAILY 07/11/16 08/11/19 History Mcg = 1000 Iu)] Furosemide [Lasix] 20 mg PO DAILY 07/11/16 08/11/19 History Montelukast [Singulair] 10 mg PO DAILY 07/11/16 08/11/19 History Apixaban [Eliquis] 2.5 mg PO BID 05/11/19 08/11/19 History Carbidopa-Levodopa ER 50-200Mg 1 tab PO BID@0700,1200 05/11/19 08/11/19 History [Sinemet CR 50-200 mg] Fluticasone/Salmeterol 1 puff INHALATION RT-BID 05/11/19 08/11/19 History [Fluticasone-Salmeterol 232-14] Multivitamin [Multivitamins Adult 1 tab PO DAILY 05/11/19 08/11/19 History Gummies] Sotalol [Betapace] 120 mg PO BID 05/11/19 08/11/19 History Vitamin C Time Release 500mg 500 mg PO DAILY 05/11/19 08/11/19 History Albuterol Nebulized [Ventolin 2.5 mg INHALATION RT-QID PRN #30 05/13/19 08/11/19 Rx Nebulized] nebu Diltiazem HCl [Diltiazem 24Hr ER] 180 mg PO DAILY 06/05/19 08/11/19 History Baclofen [Lioresal] 10 mg PO TID 08/11/19 08/11/19 History Diazepam [Valium] 5 mg PO BID 08/11/19 08/11/19 History Tiotropium [place] [Spiriva 2 puff INHALATION RT-DAILY 08/11/19 08/11/19 History Respimat] Vit C/E/Zn/Coppr/Lutein/Zeaxan 1 cap PO BID 08/11/19 08/11/19 History [Preservision Areds 2 Softgel] Allergies Allergy/AdvReac Type Severity Reaction Status Date / Time adhesive tape Allergy Rash/Hives Verified 08/11/19 14:00 latex Allergy Rash/Hives Verified 08/11/19 14:00 venom-honey bee Allergy Rash/Hives Verified 08/11/19 14:00 Physical Exam Vitals: Vital Signs Temp Pulse Pulse Resp BP Pulse Ox 08/13/19 19:58 72 08/13/19 19:47 76 08/13/19 19:46 76 08/13/19 19:34 72 08/13/19 16:13 76 08/13/19 16:02 76 01/08/20 14:21 16 08/13/19 14:15 60 16 120/66 94 L 08/13/19 09:28 77 08/13/19 09:16 73 08/13/19 09:03 76 97 08/13/19 08:00 20 08/13/19 05:00 97.6 F 68 20 114/72 94 L 08/12/19 22:00 97.7 F 74 20 108/67 94 L Intake and Output 08/13/19 08/13/19 08/13/19 06:59 14:59 22:59 Intake Total 100 Balance 100 Intake: Oral 100 Other: Voiding Method Bedpan Bedpan # Voids 2 3 Weight 74.843 kg Physical Examinations : -Constitutiona : Cooperative , not in acute distress . -HEENT : nech : supple , no Lymphadenopathy , normal thyroid size . : eyes : no ptosis , no icterus, no photophobia . : ENT : normal of hearing , normal o ropharynx , no Thrush . - Respiratory : Chest clear to auscultations Bilaterally , no wheezing , no Rhonchi . - Cardiovascula : regular rate and rhythem , S1 , S2 , no S3 , no S4. - Gastrointestina : abdomen soft no tenderness , bowel sounds , no organomegally . - Genitourinary : Defferred . - neurologic : Cranial nerve II to XII intact , no focal neurological deffecit . -psychatric : alert , oriented X 3 , appropriate affect , intact judgment and insight . -Lymphatic : no Lymphadenopathy . - musculoskeltal : Lumber spine moter stegnth lower extremities ,thigh and legs 4/5 Right side , 3-5/5 Left side deep tendon reflexes : normal Knee Jerk , normal ankle Jerk lumber facet Loading Test =positive Right , positive Left Range of motion of the lumbar spine Flexion 30 degrees, extension 10 degrees strait leg raising test = positive at degree Fabere test= positive Right , and positive LT . Sever tenderness over the Sacroiliac joint on the Right , and Left sides Results CBC & Chem 7: 08/13/19 07:15 08/13/19 07:15 Labs: Abnormal Lab Results - Last 24 Hours (Table) 08/13/19 08/13/19 08/13/19 Range/Units 01:46 07:15 07:15 RBC 3.73 L (3.80-5.40) m/uL Creatinine 0.47 L (0.52-1.04) mg/dL Glucose 146 H (74-99) mg/dL POC Glucose (mg/dL) 135 H (75-99) mg/dL 08/13/19 08/13/19 08/13/19 Range/Units 07:17 11:30 17:06 RBC (3.80-5.40) m/uL Creatinine (0.52-1.04) mg/dL Glucose (74-99) mg/dL POC Glucose (mg/dL) 136 H 203 H 111 H (75-99) mg/dL 08/13/19 Range/Units 20:58 RBC (3.80-5.40) m/uL Creatinine (0.52-1.04) mg/dL Glucose (74-99) mg/dL POC Glucose (mg/dL) 206 H (75-99) mg/dL Comments: Computed tomography scan of the lumbar spine L2-3 and L3 4 L4 5 lumbar bulging disc disease, and 45 and L5-S1 lumbar spondylosis with facet arthropathy Compression fracture at T12-L1 Assessment and Plan Plan: Assessment and plan= chronic low back pain secondary to marked multifactorial causes lumbar degenerative disc disease, lumbar spondylosis with lumbar facet arthropathy, and lumbar compression fracture, currently most of the pain is in the below the compression fracture area, and the location of the pain are not located at the T12-L1 area, patient could benefit from lumbar epidural steroid injection, and possibly from radiofrequency thermocoagulation of the medial arch lumbar area, patient currently on anticoagulation ELquis , and need to hold this medication for 72 hours before we can do epidural steroid injection, patient can be seen as an outpatient, we can arrange to hold the blood for 72 hours, if approved by the puzzle assembler, patient currently on Tylenol and she reported the current medication helping her to control her pain, command continue Tylenol , patient can follow-up in the pain clinic as an outpatient after she is discharged Time with Patient: Greater than 30 PQRS Measure Charge Sheet PQRS Narrative: Smoking Status Former smoker Do You Want the Pneumonia Vaccine Up to Date Vaccine AT THIS TIME? Blood Pressure [Left Arm] 120/66 Blood Pressure [Right Arm] 94/60 Blood Pressure 129/54 Pain Intensity [Back] 0 Pain Intensity 0 Pain Scale Used Numeric (1 - 10) Scale Used Numeric (1 - 10) Home Medications: Ambulatory Orders Cholecalciferol [Vitamin D3 (25 Mcg = 1000 Iu)] 5,000 unit PO DAILY 07/11/16 Furosemide [Lasix] 20 mg PO DAILY 07/11/16 Montelukast [Singulair] 10 mg PO DAILY 07/11/16 Apixaban [Eliquis] 2.5 mg PO BID 05/11/19 Carbidopa-Levodopa ER 50-200Mg [Sinemet CR 50-200 mg] 1 tab PO BID@0700,1200 05/11/19 Fluticasone/Salmeterol [Fluticasone-Salmeterol 232-14] 1 puff INHALATION RT-BID 05/11/19 Multivitamin [Multivitamins Adult Gummies] 1 tab PO DAILY 05/11/19 Sotalol [Betapace] 120 mg PO BID 05/11/19 Vitamin C Time Release 500mg 500 mg PO DAILY 05/11/19 Albuterol Nebulized [Ventolin Nebulized] 2.5 mg INHALATION RT-QID PRN #30 nebu 05/13/19 Diltiazem HCl [Diltiazem 24Hr ER] 180 mg PO DAILY 06/05/19 Baclofen [Lioresal] 10 mg PO TID 08/11/19 Diazepam [Valium] 5 mg PO BID 08/11/19 Tiotropium [place] [Spiriva Respimat] 2 puff INHALATION RT-DAILY 08/11/19 Vit C/E/Zn/Coppr/Lutein/Zeaxan [Preservision Areds 2 Softgel] 1 cap PO BID 08/11/19
[2019-08-14] MEDS: ACETAMINOPHEN TAB 325 MG TAB PO SCH ×5 (00:38→23:51)
[2019-08-14 01:56] LABS: Glucose,Whole Blood 132 mg/dL (75-99)
[2019-08-14] MEDS: CARBIDOPA-LEVODOPA ER 50-200MG 1 EACH TABLET.ER PO SCH ×2 (06:03→12:13)
[2019-08-14 07:33] LABS: Glucose,Whole Blood 131 mg/dL (75-99)
[2019-08-14] MEDS: BUDESONIDE 1 MG/2 ML NEBU INHALATION SCH ×2 (07:34→21:44)
[2019-08-14] MEDS: IPRATROPIUM-ALBUTEROL 3 ML NEB INHALATION SCH ×4 (07:34→21:43)
[2019-08-14] MEDS: FORMOTEROL FUMARATE 20 MCG/2 ML NEBU INHALATION SCH ×2 (07:35→21:44)
[2019-08-14] MEDS: BACLOFEN 10 MG TAB PO SCH ×2 (07:52→21:39)
[2019-08-14] MEDS: DILTIAZEM CD 180 MG CAP.ER.24H PO SCH (07:52)
[2019-08-14] MEDS: MULTIVITAMINS, THERA 1 EACH TAB PO SCH (07:52)
[2019-08-14] MEDS: APIXABAN 2.5 MG TABLET PO SCH ×2 (07:52→21:39)
[2019-08-14] MEDS: predniSONE 20 MG TAB PO SCH (07:52)
[2019-08-14] MEDS: CHOLECALCIFEROL 1,000 UNIT TAB PO SCH (07:52)
[2019-08-14] MEDS: FUROSEMIDE 20 MG TAB PO SCH (07:52)
[2019-08-14] MEDS: AZITHROMYCIN 500 MG TAB PO SCH (07:52)
[2019-08-14] MEDS: SOTALOL 120 MG TAB PO SCH ×2 (07:52→21:38)
[2019-08-14] MEDS: MONTELUKAST 10 MG TAB PO SCH (07:53)
[2019-08-14] MEDS: VIT A,C & E-LUTEIN-MINERALS 1 EACH TAB PO SCH ×2 (07:53→21:38)
[2019-08-14] MEDS: INSULIN ASPART (NovoLOG) 100 UNIT/ML VIAL SQ SCH ×4 (08:04→21:39)
--- NOTE | 2019-08-14 11:48 | P.PN ---
Subjective Progress Note Date: 08/14/19 This is a pleasant 79-year-old female patient of a [place] descent known history of COPD he quit smoking around 3 years ago, oxygen dependent although she doesn't use her oxygen the consistent basis was maintained on a combination of Spiriva and a combination of fluticasone/salmeterol inhaler on outpatient basis. 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 The patient also has history of chronic atrial fibrillation and she was also given diagnosis of Parkinson's disease. Around 6 months ago she started having increased back pain. She was admitted also because of altered mentation as the patient was being fixated the numbers and she was repeating herself and somewhat confused. In the ED, her vitals are all stable. Her UA was negative. Her urine drug screen was positive for benzodiazepines as the patient was taking Valium on outpatient basis. Chest x-ray showed infiltration of the lung bases bilaterally although possibility of atelectasis cannot be completely excluded. CAT scan of the brain showed bilateral frontal lobe atrophy and chronic small vessel ischemic change. The patient was started on a combination of Rocephin and Zithromax. She was started on DuoNeb nebulized treatments around the clock. She was also placed on IV Solu-Medrol and currently she'll be switched to a prednisone burst taper starting with 60 mg by mouth daily. Mental status improved. She is back to her baseline. She is following commands and answering questions appropriately. The cultures are negative thus far and influenza screen is negative. She was further workup by a CAT scan of the lumbar spine that showed multilevel disc bulge worse at the level of L3-L4 in addition to mild to moderate forearm and narrowing and compression fracture of the T12-L1 spine. She has no specific complaints for now. Lower extremities remain weak. She reports her breathing is improving for now. No significant leukocytosis. No renal insufficiency. Electrodes are all within normal limits. A repeat chest x-ray was done today and it showed some ongoing patchy opacities in the lung bases peripherally mainly in the left lower lobes bilaterally. I think there is some interval improvement in comparing both chest x-rays from 08/11/2019 and 08/13/2019. On 08/14/2019 the patient is feeling better and less short of breath less bronchospastic and wheezy no new complaints in terms of her breathing resting comfortably in bed. She is on oxygen. She is on antibiotics. She is on a c ourse of prednisone burst taper starting with 60 mg by mouth daily. She was seen by orthopedic surgery. She was seen by pain management. The pain is not related to compression fracture. Her pain is more so related to her lumbar spine disease which includes a combination of disc disease and arthritis. No new complaints otherwise for now. She is feeling less pain. She is going to try to ambulate with the help of the physical therapist today. Objective - Vital Signs Vital signs: Vital Signs Temp 97.6 F 08/14/19 06:18 Pulse 76 08/14/19 11:18 Resp 16 08/14/19 07:59 BP 131/78 08/14/19 06:18 Pulse Ox 95 08/14/19 07:39 Intake & Output 08/13/19 08/14/19 08/14/19 18:59 06:59 18:59 Weight 74.843 kg Other: Voiding Method Bedpan Bedpan # Voids 3 1 2 # Bowel Movements 1 - Exam General: non toxic, no distress, appears at stated age, the patient is awake and alert and communicating and she doesn't have any altered mentation this point in time. She is alert and oriented 3. Examination of the skin revealed no evidence of significant rashes, suspicious appearing nevi or other concerning lesions. Head: Head exam was generally normal. There was no scleral icterus or corneal arcus. Mucous membranes were moist. Eyes: Neck was supple and without jugular venous distension, thyromegaly, or carotid bruits. Carotids were easily palpable bilaterally. There was no adenopathy. Mouth: no lip lesion, mucus membranes moist Cardiovascular: S1S2 reg, no murmur, positive posterior tibial pulse bilateral, Lungs: + wheeze left sided, no rales , no accessory muscle use Abdominal: soft, nontender to palpation, no guarding, no appreciable organomegaly Ext: no gross muscle atrophy, no edema, no contractures Neuro: no focal neuro deficits noted, no confusion, and altered mentation Psych: Alert, oriented, flat affect - Labs CBC & Chem 7: 08/13/19 07:15 08/13/19 07:15 Labs: Abnormal Lab Results - Last 24 Hours (Table) 08/13/19 08/13/19 08/14/19 Range/Units 17:06 20:58 01:54 POC Glucose (mg/dL) 111 H 206 H 132 H (75-99) mg/dL 08/14/19 Range/Units 07:25 POC Glucose (mg/dL) 131 H (75-99) mg/dL Assessment and Plan Plan: 1 acute COPD exacerbation with secondary shortness of breath and some limited infiltration of the lung bases bilaterally which have essentially remained persistent probably somewhat improved compared to the 08/11/2019. I am very much interested in obtaining a CAT scan of the chest to characterized these abnormalities especially with the patient's history of COPD and previous history of malignancies. 2 Altered mental status, recovered. This could've been metabolic encephalopathy related to underlying infection. CAT scan of the brain showed atrophy without any acute abnormalities. 3 chronic back pain with evidence of lumbar disc disease and compression fracture at the level of T12-L1 4 history of colon cancer 5 history of bladder cancer 6 Parkinson's disease 7 CVA/TIA, history of 8 chronic hypoxic respiratory failure related to COPD 9 macular degeneration 10 previous history of UTI treated with antibiotics 11 history of pacemaker insertion Plan Clinically improved. Completed course of antibiotics and the canals of Rocephin and Zithromax to complete a seven-day course along with prednisone burst taper. Outpatient medications were appropriate. Management of back pain per pain service and the patient is likely needing an epidural shot and an outpatient basis once Eliquis has been discontinued. Physical therapy. Possible discharge in a.m.
[2019-08-14 12:02] LABS: Glucose,Whole Blood 150 mg/dL (75-99)
--- NOTE | 2019-08-14 17:04 | P.PN ---
Subjective Progress Note Date: 08/14/19 (Delayed charting seen at 10:30) Principal diagnosis: altered mentation Patient is a 79-year-old female with a past medical history of COPD, Parkinson's disease, A. fib on anticoagulation with Eliquis, prior TIA, and acute on chronic back pain who presented to the emergency department for altered mentation and fixation on numbers. In the ER she underwent an extensive evaluation. Her initial vital signs were within normal limits. Initial laboratory analysis was unremarkable, urinalysis negative, urine drug screen positive for benzodiazepines with patient having a history of taking Valium. Chest x-ray showed possible right basilar opacity representing atelectasis or early infiltrate, CT head showed bilateral frontal lobe atrophy with chronic small vessel ischemic changes. In the ER she was given a dose of Rocephin with concerns for urinary tract infection and one dose of DuoNeb. Arrangements are made for observation for her altered mentation. UA reviewed and not consistent with UTI. However it did appear that she likely had early pneumonia that she was having some wheezing which patient stated was her baseline. She was subsequently started on Rocephin and Zithromax. She was having difficulty following commands. It was difficult to ascertain if she was having some focal left-sided weakness, unable to have an MRI secondary to pacemaker. It was felt that she might have be having some polypharmacy and her baclofen and valium were stopped. She underwent a repeat head CT 24 hours after presentation which was unchanged. Repeat chest x-ray showed developing right lower lobe infiltrate compatible with pneumonia. CT lumbar spine showed multilevel disc bulging gratis at L3/4 with some mild to moderate foraminal narrowing and compression deformities of T8 12 through L1 with spondylolysis of L5. Her mentation improved with holding her baclofen and valium. her breathing worsened slightly she was started on steroids and pulmonary was consulted. She underwent a CT chest which showed trace right pleural effusion with new patchy right greater than left bibasilar opacities, partially visualized ventral abdominal wall hernia, and age indeterminate vertebral compression fracture injury of T9 with 40% overall height loss. She was seen by orthopedic spine surgery. They offered her bracing but she felt that her abdominal binder was adequate, they did not recommend any surgical intervention at this point in time as her pain is in her lower back and not consistent with where her compression fractures are noted. They recommended pain management who stated patient could have epidural injection should she be able to come off of her Eliquis for 72 hours prior. She had improvement in her breathing by the morning of 08/14. Patient seen and examined at bedside. Feels as though her breathing is near her baseline. Is not feeling anxious despite being off benzodiazepines. States that her back pain is well controlled today and she was able to move easier than she thought. Discussed with her the option for senior care facility with rehab therapy. She would like to proceed with home health care. Son present at bedside and all questions answered. Objective - Vital Signs Vital signs: Vital Signs Temp 97.6 F 08/14/19 13:06 Pulse 72 08/14/19 13:06 Resp 16 08/14/19 15:01 BP 111/63 08/14/19 13:06 Pulse Ox 96 08/14/19 13:06 Intake & Output 08/13/19 08/14/19 08/14/19 18:59 06:59 18:59 Intake Total 200 Output Total 450 Balance -250 Weight 74.843 kg Intake: Oral 200 Output: Urine 450 Other: Voiding Method Bedpan Bedpan # Voids 3 1 2 # Bowel Movements 1 - Exam General: non toxic, no distress, appears at stated age Derm: warm, dry Head: atraumatic, normocephalic, symmetric Eyes: EOMI, no lid lag, anicteric sclera Mouth: no lip lesion, mucus membranes moist Cardiovascular: S1S2 reg, no murmur, positive posterior tibial pulse bilateral, Lungs: CTA bilateral, no rales , no accessory muscle use Abdominal: soft, nontender to palpation, no guarding, no appreciable organomegaly Ext: no gross muscle atrophy, no edema, no contractures Neuro: no focal neuro deficits noted Psych: Alert, oriented, flat affect - Labs CBC & Chem 7: 08/13/19 07:15 08/13/19 07:15 Labs: Abnormal Lab Results - Last 24 Hours (Table) 08/13/19 08/13/19 08/14/19 Range/Units 17:06 20:58 01:54 POC Glucose (mg/dL) 111 H 206 H 132 H (75-99) mg/dL 08/14/19 08/14/19 Range/Units 07:25 11:57 POC Glucose (mg/dL) 131 H 150 H (75-99) mg/dL Assessment and Plan Assessment: Acute exacerbation of COPD with right-sided pneumonia, possible gram-negative in combination with chronic hypoxic respiratory failure -Continue with Zithromax and Rocephin -budesonide and formeterol, duonebs, when necessary albuterol -transitioned steroids to PO -Pulmonary hygiene -Follow chest x-ray until clear -Pulmonary recs appreciated, case discussed with Dr. Scott Toxic metabolic encephalopathy, resolved -Likely secondary to above -Continue off of Valium, baclofen restarted 08/12 secondary to back pain -Monitor closely -Repeat head CT unremarkable -TSH and cortisol levels normal. -Continue with Tylenol, avoid opiates Subacute back pain worsening over the last 4 weeks, Old compression fractures, multilevel disc bulging L3/4 and L4/5 causing mild to moderate foraminal narrowing, compression fractures T9, T12, and L1, spondylolysis of L5 -CT lumbar spine with multilevel disc bulging -Spine ortho recs appreciated - May benefit from epidural steroid injections if cardiology would approve coming off of Eliquis 72 hours. We'll pursue this in the outpatient setting. - baclofen, continue to hold Valium -Tylenol as needed for pain secondary to history of intolerance of opiates and being on Eliquis Atrial fibrillation with controlled ventricular response -Telemetry, sotalol, diltiazem -Eliquis Parkinson's disease -Continue with carbidopa levodopa Anxiety - hold add back prn xanax DVT prophylaxis: eliquis Anticipated discharge date: Home in a.m. Anticipated discharge place: home Discussed with: Patient, daughter, son , Davi, Dr. Scott
[2019-08-14 17:17] LABS: Glucose,Whole Blood 148 mg/dL (75-99)
[2019-08-14 21:36] LABS: Glucose,Whole Blood 125 mg/dL (75-99)
[2019-08-15 03:27] LABS: Glucose,Whole Blood 114 mg/dL (75-99)
[2019-08-15 05:10] VITALS: BP 155/82; TEMP 97.8
[2019-08-15] MEDS: ACETAMINOPHEN TAB 325 MG TAB PO SCH ×2 (05:25→11:52)
[2019-08-15] MEDS: FORMOTEROL FUMARATE 20 MCG/2 ML NEBU INHALATION SCH (06:57)
[2019-08-15] MEDS: BUDESONIDE 1 MG/2 ML NEBU INHALATION SCH (06:57)
[2019-08-15] MEDS: IPRATROPIUM-ALBUTEROL 3 ML NEB INHALATION SCH ×2 (06:57→11:25)
[2019-08-15 07:27] LABS: Glucose,Whole Blood 107 mg/dL (75-99)
[2019-08-15] MEDS: INSULIN ASPART (NovoLOG) 100 UNIT/ML VIAL SQ SCH ×2 (07:32→11:52)
[2019-08-15] MEDS: predniSONE 20 MG TAB PO SCH (08:21)
[2019-08-15] MEDS: CARBIDOPA-LEVODOPA ER 50-200MG 1 EACH TABLET.ER PO SCH ×2 (08:21→11:52)
[2019-08-15] MEDS: FUROSEMIDE 20 MG TAB PO SCH (08:21)
[2019-08-15] MEDS: BACLOFEN 10 MG TAB PO SCH (08:21)
[2019-08-15] MEDS: MONTELUKAST 10 MG TAB PO SCH (08:21)
[2019-08-15] MEDS: SOTALOL 120 MG TAB PO SCH (08:21)
[2019-08-15] MEDS: CHOLECALCIFEROL 1,000 UNIT TAB PO SCH (08:21)
[2019-08-15] MEDS: VIT A,C & E-LUTEIN-MINERALS 1 EACH TAB PO SCH (08:21)
[2019-08-15] MEDS: APIXABAN 2.5 MG TABLET PO SCH (08:21)
[2019-08-15] MEDS: MULTIVITAMINS, THERA 1 EACH TAB PO SCH (08:22)
[2019-08-15] MEDS: DILTIAZEM CD 180 MG CAP.ER.24H PO SCH (08:22)
[2019-08-15] MEDS: AZITHROMYCIN 500 MG TAB PO SCH (08:22)
[2019-08-15 11:27] VITALS: PULSE 72
--- NOTE | 2019-08-15 11:29 | P.DS ---
Providers Date of admission: 08/13/19 08:45 Expected date of discharge: 08/15/19 Attending physician: Tess Porras DO Consults: 08/12/19 16:33 Consult Physician Routine Consulting Provider: Pooja Nunez Consult Reason/Comments: back pain, acute on chronic worsening Do you want consulting provider notified?: Yes 08/12/19 16:40 Consult Physician Routine Consulting Provider: Alma Scott Consult Reason/Comments: acute exacerbation COPD Do you want consulting provider notified?: Yes Primary care physician: Tammy Lockwood [facility] Hospital Course: Discharge Diagnosis: Acute exacerbation of COPD with right-sided pneumonia, possible gram-negative in combination with chronic hypoxic respiratory failure Toxic metabolic encephalopathy, resolved Subacute back pain worsening over the last 4 weeks, Old compression fractures, multilevel disc bulging L3/4 and L4/5 causing mild to moderate foraminal narrowing, compression fractures T9, T12, and L1, spondylolysis of L5 Atrial fibrillation with controlled ventricular response Parkinson's disease Anxiety Hospital Course: Patient is an 79-year-old female with a past medical history of COPD, Parkinson's disease, A. fib on anticoagulation with Eliquis, prior TIA, and acute on chronic back pain who presented to the emergency department for altered mentation and fixation on numbers. In the ER she underwent an extensive evaluation. Her initial vital signs were within normal limits. Initial laboratory analysis was unremarkable, urinalysis negative, urine drug screen positive for benzodiazepines with patient having a history of taking Valium. Chest x-ray showed possible right basilar opacity representing atelectasis or early infiltrate, CT head showed bilateral frontal lobe atrophy with chronic small vessel ischemic changes. In the ER she was given a dose of Rocephin with concerns for urinary tract infection and one dose of DuoNeb. Arrangements are made for observation for her altered mentation. UA reviewed and not consistent with UTI. However it did appear that she likely had early pneumonia that she was having some wheezing which patient stated was her baseline. She was subsequently started on Rocephin and Zithromax. She was having difficulty following commands. It was difficult to ascertain if she was having some focal left-sided weakness, unable to have an MRI secondary to pacemaker. It was felt that she might have be having some polypharmacy and her baclofen and valium were stopped. She underwent a repeat head CT 24 hours after presentation which was unchanged. Repeat chest x-ray showed developing right lower lobe infiltrate compatible with pneumonia. CT lumbar spine showed multilevel disc bulging at L3/4 with some mild to moderate foraminal narrowing and compression deformities of T8 12 through L1 with spondylolysis of L5. Her mentation improved with holding her baclofen and valium. Her breathing worsened slightly she was started on steroids and pulmonary was consulted. She underwent a CT chest which showed trace right pleural effusion with new patchy right greater than left bibasilar opacities, partially visualized ventral abdominal wall hernia, and age indeterminate vertebral compression fracture injury of T9 with 40% overall height loss. She was seen by orthopedic spine surgery. They offered her bracing but she felt that her abdominal binder was adequate, they did not recommend any surgical intervention at this point in time as her pain is in her lower back and not consistent with where her compression fractures are noted. They recommended pain management who stated patient could have epidural injection should she be able to come off of her Eliquis for 72 hours prior. She had improvement in her breathing by the morning of 08/14 and her pain was controlled and breathing back to baseline. She was determined stable for discharge home on 08/15. She will complete 4 more days of oral antibiotics and a slow steroid zoya. She will follow-up with Dr. Banks, Dr. Martinez, and her Woods Boss. She will follow-up with anesthesia as needed for pain control. Patient seen and examined at bedside. Breathing back to baseline, pain well controlled, no nausea, no constipation. Son present at bedside and all questions answered. Vital signs reviewed and stable. General: non toxic, no distress, appears at stated age Derm: warm, dry Head: atraumatic, normocephalic, symmetric Eyes: EOMI, no lid lag, anicteric sclera Mouth: no lip lesion, mucus membranes moist Cardiovascular: S1S2 reg, no murmur, positive posterior tibial pulse bilateral, Lungs: faint upper airway wheeze bilateral, no rhonchi, no rales , no accessory muscle use Abdominal: soft, nontender to palpation, no guarding, no appreciable organomegaly Ext: no gross muscle atrophy, no edema, no contractures Neuro: CN II-XI grossly intact, no focal neuro deficits Psych: Alert, oriented, appropriate affect A total of 35 minutes of time were spent preparing this complex discharge summary. Patient Condition at Discharge: Fair Plan - Discharge Summary Discharge Rx Participant: No New Discharge Prescriptions: New Cefdinir 300 mg PO Q12HR #4 cap predniSONE 0 mg PO DIRECTED #33 tab Acetaminophen Tab [Tylenol] 650 mg PO Q6HR tab ALPRAZolam [Xanax] 0.25 mg PO TID PRN #12 tab PRN Reason: Anxiety Azithromycin [Zithromax] 500 mg PO DAILY #2 tab Continue Cholecalciferol [Vitamin D3 (25 Mcg = 1000 Iu)] 5,000 unit PO DAILY Montelukast [Singulair] 10 mg PO DAILY Furosemide [Lasix] 20 mg PO DAILY Vitamin C Time Release 500mg 500 mg PO DAILY Carbidopa-Levodopa ER 50-200Mg [Sinemet CR 50-200 mg] 1 tab PO BID@0700,1200 Fluticasone/Salmeterol [Fluticasone-Salmeterol 232-14] 1 puff INHALATION RT- BID Apixaban [Eliquis] 2.5 mg PO BID Sotalol [Betapace] 120 mg PO BID Multivitamin [Multivitamins Adult Gummies] 1 tab PO DAILY Albuterol Nebulized [Ventolin Nebulized] 2.5 mg INHALATION RT-QID PRN #30 nebu PRN Reason: Shortness Of Breath Diltiazem HCl [Diltiazem 24Hr ER] 180 mg PO DAILY Baclofen [Lioresal] 10 mg PO TID Tiotropium Laurel [Spiriva Respimat] 2 puff INHALATION RT-DAILY Vit C/E/Zn/Coppr/Lutein/Zeaxan [Preservision Areds 2 Softgel] 1 cap PO BID Discontinued Diazepam [Valium] 5 mg PO BID Discharge Medication List Cholecalciferol [Vitamin D3 (25 Mcg = 1000 Iu)] 5,000 unit PO DAILY 07/11/16 [History] Furosemide [Lasix] 20 mg PO DAILY 07/11/16 [History] Montelukast [Singulair] 10 mg PO DAILY 07/11/16 [History] Apixaban [Eliquis] 2.5 mg PO BID 05/11/19 [History] Carbidopa-Levodopa ER 50-200Mg [Sinemet CR 50-200 mg] 1 tab PO BID@0700,1200 05/11/19 [History] Fluticasone/Salmeterol [Fluticasone-Salmeterol 232-14] 1 puff INHALATION RT-BID 05/11/19 [History] Multivitamin [Multivitamins Adult Gummies] 1 tab PO DAILY 05/11/19 [History] Sotalol [Betapace] 120 mg PO BID 05/11/19 [History] Vitamin C Time Release 500mg 500 mg PO DAILY 05/11/19 [History] Albuterol Nebulized [Ventolin Nebulized] 2.5 mg INHALATION RT-QID PRN #30 nebu 05/13/19 [Rx] Diltiazem HCl [Diltiazem 24Hr ER] 180 mg PO DAILY 06/05/19 [History] Baclofen [Lioresal] 10 mg PO TID 08/11/19 [History] Tiotropium Laurel [Spiriva Respimat] 2 puff INHALATION RT-DAILY 08/11/19 [History] Vit C/E/Zn/Coppr/Lutein/Zeaxan [Preservision Areds 2 Softgel] 1 cap PO BID 08/11/19 [History] ALPRAZolam [Xanax] 0.25 mg PO TID PRN #12 tab 08/15/19 [Rx] Acetaminophen Tab [Tylenol] 650 mg PO Q6HR tab 08/15/19 [Rx] Azithromycin [Zithromax] 500 mg PO DAILY #2 tab 08/15/19 [Rx] Cefdinir 300 mg PO Q12HR #4 cap 08/15/19 [Rx] predniSONE 0 mg PO DIRECTED #33 tab 08/15/19 [Rx] Follow up Appointment(s)/Referral(s): Raul Guardado PAC [PHYSICIAN SENIOR BUSINESS DEVELOPMENT ANALYST] - As Needed (Patient may follow-up with Raul Guardado PA-C or Dr. Clif Nunez at [facility] on an as-needed basis following discharge. ) Tammy Banks MD [Primary Care Provider] - 1-2 days [facility]redited [facility], [REFERRING] - [facility] [NON-STAFF] - As Needed (For Epidural steroid injections if needed) Patient Instructions/Handouts: Urinary Tract Infection in Women (DC), Pneumonia (DC) Activity/Diet/Wound Care/Special Instructions: Up with assist, fall precautions. Low fat, low salt diet. Oxygen at 3L nasal cannula Follow-up with your professional bondsman in 2-4 weeks Discharge Disposition: HOME WITH HOME HEALTH SERVICES
== END 2019-08-15 12:18 | disposition home health service (06) | DRG 177 ==
LOC: EC 09:13 → 6NMEDSUR 12:19 → OBSVTOIN 08-13 08:45
PROVIDERS: ADMIT Internal Medicine; ATTEND Internal Medicine
DX: J15.6 Pneumonia due to other Gram-negative bacteria (principal); G92 Toxic encephalopathy; J96.11 Chronic respiratory failure with hypoxia; J44.0 Chronic obstructive pulmonary disease with (acute) lower respiratory infection; J44.1 Chronic obstructive pulmonary disease with (acute) exacerbation; I48.20 Chronic atrial fibrillation, unspecified; M48.54XA Collapsed vertebra, not elsewhere classified, thoracic region, initial encounter for fracture; M48.56XA Collapsed vertebra, not elsewhere classified, lumbar region, initial encounter for fracture; Z87.891 Personal history of nicotine dependence; K42.9 Umbilical hernia without obstruction or gangrene; F41.9 Anxiety disorder, unspecified; G20 Parkinson's disease; G89.29 Other chronic pain; I10 Essential (primary) hypertension; M19.90 Unspecified osteoarthritis, unspecified site; M43.06 Spondylolysis, lumbar region; M51.36 Other intervertebral disc degeneration, lumbar region; Z87.440 Personal history of urinary (tract) infections; Z66 Do not resuscitate; Z79.01 Long term (current) use of anticoagulants; Z79.899 Other long term (current) drug therapy; Z85.038 Personal history of other malignant neoplasm of large intestine; Z85.51 Personal history of malignant neoplasm of bladder; Z86.73 Personal history of transient ischemic attack (TIA), and cerebral infarction without residual deficits; Z90.710 Acquired absence of both cervix and uterus; Z90.81 Acquired absence of spleen; Z90.49 Acquired absence of other specified parts of digestive tract; H35.30 Unspecified macular degeneration; Z91.81 History of falling; Z99.81 Dependence on supplemental oxygen; Z91.030 Bee allergy status; Z91.041 Radiographic dye allergy status; Z95.0 Presence of cardiac pacemaker; R29.898 Other symptoms and signs involving the musculoskeletal system; M51.26 Other intervertebral disc displacement, lumbar region
CPT/HCPCS: 36415; 70450; 71045; 71046; 71260; 72132; 80048; 80053; 80306; 81001; 82533; 83605; 83735; 84100; 84443; 84484; 85025; 85027; 85610; 85730; 87502; 93005; 94640; 94760; 96361; 96365; 96366; 96368; 96375; 99285